=== PATIENT | male | born 1945 | race Caucasian/White ===

== ENCOUNTER → 2020-08-03 | Outpatient (CLI) | payer MEDICARE ==
[2020-08-03 20:22] LABS: African American GFR (CKD) 69.1 (60.0-200.0); Anion Gap 6.7 mmol/L (4.00-12.00); Calcium 9.4 mg/dL (8.7-10.3); Carbon Dioxide 31.3 mmol/L (21.6-31.8); Non-African American GFR(CKD) 59.6 (60.0-200.0)
== END | disposition home or self-care (01) ==
LOC: LABWHC1 10:12
PROVIDERS: ATTEND Internal Medicine Cardiovascular Disease
DX: I10 Essential (primary) hypertension (principal); E78.2 Mixed hyperlipidemia; R00.1 Bradycardia, unspecified
CPT/HCPCS: 36415; 80048; 84443

== ENCOUNTER → 2020-09-06 | Outpatient (CLI) | payer MEDICARE ==
--- NOTE | 2020-09-06 11:47 | CT ---
EXAMINATION TYPE: CT abdomen pelvis w con DATE OF EXAM: 09/06/2020 COMPARISON: HISTORY: Elevated PSA CT DLP: 1989.6 mGycm CONTRAST: CT scan of the abdomen and pelvis is performed with Oral Contrast and with IV Contrast, patient injec sunshine with 80 mL of Isovue 300. FINDINGS: LUNG BASES-: No visible nodule. No infiltrate. LIVER/GB: Multiple small gallstones identified. No thickening or pericholecystic fluid. No space o ccupying hepatic lesion. Biliary tree is of normal caliber. PANCREAS: No inflammation. No distinct mass. SPLEEN: No splenic enlargement. No lesion seen. ADRENALS: No nodule. No thickening. KIDNEYS/BLADDER: No hydronephrosis. No nephrolithiasis. No solid renal masses identified. Simple cy sts noted bilaterally the largest at mid pole right kidney 0.5 cm. Urinary bladder grossly unremarkab le. BOWEL: Normal appendix. Normal bowel caliber. No inflammation. GENITAL ORGANS: There are changes of prostatectomy. Pelvic sidewalls.. LYMPH NODES: No greater than 1cm abdominal or pelvic lymph nodes are appreciated. AORTA: No significant abnormality. OSSEOUS STRUCTURES: There is loss of vertebral body height at L5 this is T11. Findings are of uncerta in age and/or etiology. Degenerative changes are seen. OTHER: No significant additional abnormality is seen. IMPRESSION: 1. Multiple small gallstones identified. No thickening or pericholecystic fluid. 2.There is loss of vertebral body height at L5 this is T11. Findings are of uncertain age and/or etio logy.
--- NOTE | 2020-09-06 13:21 | NM ---
EXAMINATION TYPE: NM bone scan whole body DATE OF EXAM: 09/06/2020 COMPARISON: NONE HISTORY: R97.21 Post cancer treatment rising PSA Delayed whole-body scanning was performed following the injection of 19.4 mCi Tc 99m MDP. Images acq uired 3 hours post injection. FINDINGS: Intense increased uptake linear configuration involving T11 compatible with compression fracture. Fra ctures of uncertain etiology. Metastatic disease not excluded. Focal increased uptake involving the g reater tuberosity of the right humerus. Radiographic correlation advised. Otherwise there is degenera tive uptake of the shoulders, sternoclavicular joints, mid thoracic spine and lower lumbar spine as w ell as the knees and great toes. IMPRESSION: 1. T11 fracture of uncertain etiology. Underlying pathologic component difficult to exclude. Radiogra phic correlation advised. 2. Focal increased uptake greater tuberosity of the right humerus requires further evaluation with ra diographs.
== END | disposition home or self-care (01) ==
LOC: RADCTMAIN 08:14
PROVIDERS: ATTEND Urology
DX: K80.20 Calculus of gallbladder without cholecystitis without obstruction (principal); M51.85 Other intervertebral disc disorders, thoracolumbar region; R94.8 Abnormal results of function studies of other organs and systems
CPT/HCPCS: 82565; 84520; 74177; 36415; 78306; A9503; Q9967 ×2

== ENCOUNTER → 2020-09-07 | Outpatient (CLI) | payer MEDICARE ==
--- NOTE | 2020-09-07 14:26 | XR ---
EXAMINATION TYPE: XR humerus RT DATE OF EXAM: 09/07/2020 COMPARISON: None HISTORY: Back pain shoulder pain TECHNIQUE: Two-view right humerus FINDINGS: Joint spaces are preserved. No acute fractures are evident. IMPRESSION: 1. Normal 2 view right humerus
--- NOTE | 2020-09-07 14:28 | XR ---
EXAMINATION TYPE: XR lumbar spine 2 or 3V DATE OF EXAM: 09/07/2020 COMPARISON: None HISTORY: Shoulder and back pain TECHNIQUE: Three-view lumbar spine FINDINGS: There 5 lumbar-type vertebral bodies. Pedicles are intact. Scoliosis is present centered to L3 with a convexity to the left. There is diffuse loss of disc height throughout the lumbar spine. T his appears greatest at L4-5. Endplate spurring is present L2-3 L3-4 and L4-5. Spondylosis is present . IMPRESSION: 1. Degenerative disc changes greatest at L4-5 2. Some endplate spurring may be present through the lumbar spine. Consider MRI for additional evalua tion. 3. Spondylosis
== END | disposition home or self-care (01) ==
LOC: RADXRMAIN 11:13
PROVIDERS: ATTEND Urology
DX: M54.5 Low back pain (principal); M25.519 Pain in unspecified shoulder; M47.816 Spondylosis without myelopathy or radiculopathy, lumbar region
CPT/HCPCS: 72100

== ENCOUNTER → 2021-04-16 | Outpatient (CLI) | payer MEDICARE | END | disposition home or self-care (01) | LOC: LABWHC1 08:51 | PROVIDERS: ATTEND Radiology Radiation Oncology | DX: C61 Malignant neoplasm of prostate (principal); Z90.79 Acquired absence of other genital organ(s) | CPT/HCPCS: 36415; 84153 ==

== ENCOUNTER → 2021-11-04 | Outpatient (CLI) | payer MEDICARE | END | disposition home or self-care (01) | LOC: LABWHC1 15:23 | PROVIDERS: ATTEND Radiology Radiation Oncology | DX: C61 Malignant neoplasm of prostate (principal); Z92.3 Personal history of irradiation; Z90.79 Acquired absence of other genital organ(s) | CPT/HCPCS: 36415; 84153 ==

== ENCOUNTER → 2022-05-06 | Outpatient (CLI) | payer MEDICARE | END | disposition home or self-care (01) | LOC: LABWHC1 11:09 | PROVIDERS: ATTEND Radiology Radiation Oncology | DX: C61 Malignant neoplasm of prostate (principal); Z92.3 Personal history of irradiation; Z90.79 Acquired absence of other genital organ(s) | CPT/HCPCS: 36415; 84153 ==

== ENCOUNTER → 2022-11-11 | Outpatient (CLI) | payer MEDICARE | END | disposition home or self-care (01) | LOC: LABWHC1 11:10 | PROVIDERS: ATTEND Radiology Radiation Oncology | DX: Z08 Encounter for follow-up examination after completed treatment for malignant neoplasm (principal); C61 Malignant neoplasm of prostate; Z90.79 Acquired absence of other genital organ(s); Z92.3 Personal history of irradiation; Z85.46 Personal history of malignant neoplasm of prostate | CPT/HCPCS: 36415; 84153 ==

== ENCOUNTER → 2023-02-20 | Day surgery (SDC) | payer MEDICARE ==
[~2023-02-20] MED LIST: BUPIVACAINE (PF) 0.25% 30 ML VIAL SQ ONE; DEXAMETHASONE SOD PHOSPHATE 4 MG/ML 1 ML VIAL IV ONE; DEXAMETHASONE SOD PHOSPHATE 4 MG/ML 1 ML VIAL ONE; GLYCOPYRROLATE 0.2 MG/ML 2 ML VIAL ONE; HYDROmorphone (PF) 1 MG/ML ONE; LACTATED RINGERS 1,000 ML IV SCH; LIDOCAINE 1% (10MG/ML) FOR IV START INTRADERMA PRN; LIDOCAINE 2% INJ 20 MG/ML (2 ML VIAL) ONE; METOCLOPRAMIDE 5 MG/ML 2 ML VIAL IVP PRN; MIDAZOLAM 2 MG/2 ML VIAL IVP ONE; ONDANSETRON 4 MG/2 ML VIAL IVP ONE; ONDANSETRON 4 MG/2 ML VIAL ONE; PHENYLEPHRINE-0.9% NACL SYG 1,000 MCG/10 ML SYRINGE ONE; PROPOFOL 10 MG/ML 20 ML VIAL IV ONE; ROPIVACAINE 5 MG/ML 30 ML VIAL ONE; ceFAZolin 3 GM in SODIUM CHLORIDE 0.9% 100 ML IVPB PRN; fentaNYL (PF) 50 MCG/ML 2 ML AMP IVP ONE; fentaNYL (PF) 50 MCG/ML 2 ML AMP ONE
--- NOTE | 2023-02-20 10:42 | P.ANPRN ---
Procedure Note - Anesthesia - Nerve Block Performed Right Adductor Canal Single Date of Procedure: 02/20/23 Procedure Start Time: 10:26 Procedure Stop Time: 10:38 Location of Patient: PreOp Indication: Acute Post-Operative Pain Specifically requested for management of pain by DrSaira: Auerlio Roe Sedation Type: Sedate with meaningful contact maintained Preparation: Sterile Prep Position: Supine Needle Types: Pajunk Needle Gauge: 21 Ultrasound used to visualize needle placement: Yes Ultrasound used to observe medication spread: Yes Injectate: 0.5% Ropivacaine (see comment for volume) (10 mL/Decadron 4 mg) Blood Aspirated: No Pain Paresthesia on Injection Noted: No Resistance on Injection: Normal Image Stored and Saved: Yes Events: Uneventful and Well Tolerated
--- NOTE | 2023-02-20 10:44 | P.ANPRN ---
Procedure Note - Anesthesia - Nerve Block Performed Right Popliteal Single Date of Procedure: 02/20/23 Procedure Start Time: 10: Procedure Stop Time: 10:38 Location of Patient: PreOp Indication: Acute Post-Operative Pain Specifically requested for management of pain by DrSaira: Aurelio Roe Sedation Type: Sedate with meaningful contact maintained Preparation: Sterile Prep Position: Left Lateral Catheter: None Needle Types: Pajunk Needle Gauge: 21 Ultrasound used to visualize needle placement: Yes Ultrasound used to observe medication spread: Yes Injectate: 0.5% Ropivacaine (see comment for volume) (20 mL/Decadron 2 mg) Blood Aspirated: No Pain Paresthesia on Injection Noted: No Resistance on Injection: Normal Image Stored and Saved: Yes Events: Uneventful and Well Tolerated
--- NOTE | 2023-02-20 16:23 | P.OP ---
Date of Procedure: 02/20/23 Preoperative Diagnosis: Hallux rigidus right foot Postoperative Diagnosis: Same Procedure(s) Performed: First metatarsal phalangeal joint arthrodesis right foot Implants: Arthrex MaxForce plate Arthrex bone allograft Anesthesia: MINA Surgeon: Aurelio Roe Estimated Blood Loss (ml): 1 Pathology: none sent Condition: stable Disposition: PACU Description of Procedure: Prior to the patient being brought to the operating room, anesthesia administered a nerve block on the surgical extremity. Then the patient was brought into the operating room and placed on table in the supine position. Timeout was taken to confirm correct patient identifiers, correct lateral surgery, and correct procedure. Once the staff in the room were in agreement with the timeout, the patient was induced and placed under general anesthesia. A well-padded tourniquet was placed on the ankle and then the foot was prepped and draped in the usual manner. The right foot was exsanguinated and the tourniquet inflated to 250 mmHg. Attention was directed over the dorsal aspect of the first metatarsal phalangeal joint, where a linear incision was made between the long extensor tendon and the neurovascular structures. The incision was deepened down to the subcutaneous layer careful to identify, avoid, and retract any neurovascular structures and cauterize any bleeding vessels. Blunt dissection was continued through the subcutaneous layer down to the periosteum and capsule. A linear periosteal and capsular incision was made medial to the long extensor tendon. Those tissues were then sharply reflected off of the first metatarsal head and shaft as well as the base of the proximal phalanx. The soft tissue was released around the joint so that the joint could be mobilized and accessed. A guidewire was placed through the central aspect of the first metatarsal head parallel to the long access and within the medullary canal. Appropriate size reamers were used to shape the first metatarsal head. Then a concave reamer was inserted over the guidewire and used to remove the articular cartilage and subchondral bone. The wire was removed was used to aggressively fenestrate the head of the first metatarsal. The guidewire was then inserted at the central aspect of the articular surface of the base of the proximal phalanx. The wire was advanced parallel to the long access and within the medullary canal. The convex reamer was then used to remove the articular cartilage and subchondral bone. The guidewire was removed and used to fenestrate the surface. The wound is then thoroughly irrigated with antibiotic saline. Arthrex Arthrocell was placed between the arthrodesis segments. A 0 bend first metatarsal phalangeal joint fusion plate was then positioned dorsally over the site. Temporary fixation was used to hold the plate in place. Fluoroscopy was used to check the placement of the plate as well as the joint alignment. Once both positions were satisfactory, a combination of locking and nonlocking screws were placed in the distal part of the plate into the proximal phalanx. The position of the joint and plate were checked again under fluoroscopy. Once both were satisfactory, a wire was placed in the base of the proximal phalanx and across the arthrodesis site to maintain the alignment. The offset drill guide was then placed in the compression slot of the plate. The guide was removed and then the compression device was inserted through the drill hole in engaged with the plate. The compression device was turned to further compress the joint. While holding a compressed another temporary fixation wire was used to hold it in place. A drill hole through the proximal compression slot was then made and a nonlocking screw was inserted and tightened until it engaged the plate and provided further compression across the arthrodesis site. A nonlocking screw was then placed in the drill hole in the proximal aspect of the plate closest to the joint line. The final screw was a locking screw placed in the most proximal hole the plate. Final fluoroscopic imaging showed proper placement of all hardware, maintaining correction of the joint, and excellent compression across the arthrodesis site. The temporary fixation wire was removed and the joint thoroughly irrigated with antibiotic saline. The capsule and periosteal tissues were closed with 0 Vicryl. Subcu closure was done with 4-0 Monocryl. And skin closure was done w ith 4-0 Stratafix in a running subcuticular manner. Dermal glue was placed around the incision, and once dried, Steri-Strips are placed across incision. An Arthrex jumpstart dressing was placed directly over the incision and then a dry sterile dressings applied to the right foot. The tourniquet was released and capillary refill return to all digits on the right foot. The patient was then placed in a well-padded, well molded plaster posterior mold/sugar tong splint. The ankle was held in neutral position until the splint was dried. Then anesthesia was reversed and the patient was taken recovery with vital signs stable.
[2023-02-20 16:29] VITALS: TEMP 96.8
[2023-02-20 16:51] VITALS: RESP 16
[2023-02-20 18:00] VITALS: BP 152/88; PULSE 79
== END | disposition home or self-care (01) ==
LOC: OR 09:10
PROVIDERS: ATTEND Podiatrist
DX: M20.21 Hallux rigidus, right foot (principal); G89.18 Other acute postprocedural pain; I10 Essential (primary) hypertension; E78.5 Hyperlipidemia, unspecified; Z86.59 Personal history of other mental and behavioral disorders; Z79.899 Other long term (current) drug therapy
CPT/HCPCS: 64447; 64445; 28750; C1713; C1734; J2250; J1100; J0690; J2405; J3010; J1170; J2795; J2704; J2001; J2371; J0665

== ENCOUNTER 2023-10-29 10:35 | Inpatient (IN) | payer MEDICARE ==
--- NOTE | 2023-10-29 11:29 | ED ---
Dizziness HPI - General Stated Complaint: Hypertension Time Seen by Provider: 10/29/23 11:15 Source: patient, RN notes reviewed - History of Present Illness Initial Comments: This is a 78-year-old male who presents emergency department via EMS chief complaint of headache, blurry/double vision, dizziness over the last 4 days. Patient states that he returned home on Thursday evening after driving with his convertible top down and noticed a headache on the left side of his forehead wrapping around the temporal region that has been intermittent since. this morning he had another brief experience of blurry/double vision and dizziness described as the room spinning sensation prompting his visit to the [facility]. He denies any chest pain or pressure, palpitations. Endorses exertional dyspnea that has been ongoing, denies orthopena or bilateral lower extremity swelling. Denies dysuria, abdominal pain, numbness/tingiling, fevers, nausea. Denies history of [place], CVA, and PE/DVT, takes ASA 81, losartan and statin. - Related Data Home Medications Medication Instructions Recorded Confirmed Aspirin 81 mg PO DAILY 02/17/23 10/29/23 Atorvastatin [Lipitor] 20 mg PO DAILY 10/29/23 10/29/23 Latanoprost [Latanoprost 0.005%] 1 drop BOTH EYES DIRECTED 10/29/23 10/29/23 Losartan/Hydrochlorothiazide 1 tab PO HS 10/29/23 10/29/23 [Hyzaar 100-12.5 Tablet] Pantoprazole Sodium [Protonix] 20 mg PO HS 10/29/23 10/29/23 Allergies Allergy/AdvReac Type Severity Reaction Status Date / Time hydrocodone bitartrate Allergy went Verified 10/29/23 11:05 [From Vicodin] "bananas" Review of Systems ROS Statement: Those systems with pertinent positive or pertinent negative responses have been documented in the HPI. ROS Other: All systems not noted in ROS Statement are negative. Past Medical History Past Medical History: Cancer, Hyperlipidemia, Hypertension Additional Past Medical History / Comment(s): hx prostates cancer, 2016 History of Any Multi-Drug Resistant Organisms: None Reported Past Surgical History: Hernia Repair, Orthopedic Surgery, Prostate Surgery Additional Past Surgical History / Comment(s): bilateral HAND TENDON RELEASE, colonoscopy Past Anesthesia/Blood Transfusion Reactions: No Reported Reaction Smoking Status: Never smoker - Past Family History Father Family Medical History: Myocardial Infarction ([place]) Mother Family Medical History: Cancer General Exam General appearance: alert, in no apparent distress Head exam: Present: atraumatic, normocephalic, normal inspection Eye exam: Present: normal appearance, PERRL, EOMI. Absent: scleral icterus, conjunctival injection, periorbital swelling ENT exam: Present: normal exam, mucous membranes moist Neck exam: Present: normal inspection. Absent: tenderness, meningismus, lymphadenopathy Respiratory exam: Present: normal lung sounds bilaterally. Absent: respiratory distress, wheezes, rales, rhonchi, stridor Cardiovascular Exam: Present: regular rate, normal rhythm, bradycardia, normal heart sounds. Absent: systolic murmur, diastolic murmur, rubs, gallop, clicks GI/Abdominal exam: Present: soft, normal bowel sounds. Absent: distended, tenderness, guarding, rebound, rigid Extremities exam: Present: normal inspection, full ROM, normal capillary refill, other (1/2+ bilateral lower extremity pitting edema). Absent: tenderness, pedal edema, joint swelling, calf tenderness Back exam: Present: normal inspection Neurological exam: Present: alert, oriented X3, CN II-XII intact Psychiatric exam: Present: normal affect, normal mood Skin exam: Present: warm, dry, intact, normal color. Absent: rash Course Vital Signs 10/29/23 10/29/23 10/29/23 11:02 11:24 11:33 Temperature 98 F Pulse Rate 61 52 L 59 L Respiratory 18 18 18 Rate Blood Pressure 154/99 146/92 154/90 O2 Sat by Pulse 98 95 97 Oximetry 10/29/23 12:22 Temperature Pulse Rate 48 L Respiratory 18 Rate Blood Pressure 147/101 O2 Sat by Pulse 98 Oximetry Medical Decision Making - Medical Decision Making Was pt. sent in by a medical professional or institution (, PA, WORKFORCE MANAGEMENT CONSULTANT, urgent care, hospital, or correction...) When possible be specific @ -No Did you speak to anyone other than the patient for history (EMS, parent, family, police, friend...)? What history was obtained from this source @ -No Did you review nursing and triage notes (agree or disagree)? Why? @ -I reviewed and agree with nursing and triage notes Were old charts reviewed (outside hosp., previous admission, EMS record, old EKG, old radiological studies, urgent care reports/EKG's, correction records)? Report findings @ -No old charts were reviewed Differential Diagnosis (chest pain, altered mental status, abdominal pain women, abdominal pain men, vaginal bleeding, weakness, fever, dyspnea, syncope, headache, dizziness, GI bleed, back pain, seizure, CVA, palpatations, mental health, musculoskeletal)? @ -Differential Headache: Migraine, tension, cluster, carbon monoxide, central venous thrombosis, pension karma temporal arteritis, acute closure glaucoma, intercranial hemorrhage, mastoiditis, sinusitis, head injury, this is not meant to be an all-inclusive list. EKG interpreted by me (3pts min.). @Completed at 11:00 reading sinus bradycardia, ventricular rate 59, [place] interval 191, QTc 422. poor R wave progression noted in the precordial leads. No acute signs of ischemia. X-rays interpreted by me (1pt min.). @ -chest X-ray no acute cardiopulmonary process noted CT interpreted by me (1pt min.). @ -Ct brain without contrast reveals no acute intracranial processes minimal chronic appearing periventricular white matter changes U/S interpreted by me (1pt. min.). @ -None done What testing was considered but not performed or refused? (CT, X-rays, U/S, labs)? Why? @ -None What meds were considered but not given or refused? Why? @ -None Did you discuss the management of the patient with other professionals (professionals i.e. , PA, WORKFORCE MANAGEMENT CONSULTANT, lab, RT, psych nurse, healthcare social worker, equipment engineering technician, teacher, driver's license reviewing officer, supportive employment case manager)? Give summary @ -I discussed this case with recommendation for observation with [facility] emergency department physicians group, , agreeable for observation for bradycardia, HTN, Dizziness and blurred vision. Internal medicine will visit with patient to determine if he would benefit from cardiology consultation. Was smoking cessation discussed for >3mins.? @ -No Was critical care preformed (if so, how long)? @ -No Were there social determinants of health that impacted care today? How? (Homelessness, low income, unemployed, alcoholism, drug addiction, transportation, low edu. Level, literacy, decrease access to med. care, fpc, rehab)? @ -No Was there de-escalation of care discussed even if they declined (Discuss DNR or withdrawal of care, Hospice)? DNR status @ -No What co-morbidities impacted this encounter? (DM, HTN, Smoking, COPD, CAD, Cancer, CVA, ARF, Chemo, Hep., AIDS, mental health diagnosis, sleep apnea, morbid obesity)? @ -None Was patient admitted / discharged? Hospital course, mention meds given and route, prescriptions, significant lab abnormalities, going to OR and other pertinent info. @ -78-year-old male with headache/ blurry double vision. On physical exam patient was found to have bilateral lower extremity 1-2+ pitting edema, pulmonary and cardiovascular exams unremarkable. CT brain without contrast due to symptoms of blurred double vision and headache unemarkable for signs of acute hemorrhage, revealed chronic white matter changed. chest xray unremarkable for signs of pulmonary edema or increased vascular marking. CBC and CMP within normal limits, no evidence for electrolyte abnormalities or leukocytosis. BNP and troponin nonelevated. Patient's vitals revealed multiple episodes of bradyc ardia with associated HTN, patient states that he is asymptomatic. Patient will be admitted for observation with bradycardia, hypertension/double vision. I discussed this case with my attending Dr. Lombardi who is agreeable with plan for observation and with internal medicine Dr. Alberts. Undiagnosed new problem with uncertain prognosis? @ -No Drug Therapy requiring intensive monitoring for toxicity (Heparin, Nitro, Insulin, Cardizem)? @ -No Were any procedures done? @ -No Diagnosis/symptom? @ -Bradycardia, HTN, blurred and double vision, HOBBS Acute, or Chronic, or Acute on Chronic? @ -acute Uncomplicated (without systemic symptoms) or Complicated (systemic symptoms)? @ -[complicated Side effects of treatment? @ -No Exacerbation, Progression, or Severe Exacerbation? @ -No Poses a threat to life or bodily function? How? (Chest pain, [place], [place], pneumonia, PE, COPD, DKA, ARF, appy, cholecystitis, CVA, Diverticulitis, Homicidal, Suicidal, threat to staff... and all critical care pts) @ -No - Lab Data Result diagrams: 10/29/23 11:05 10/29/23 11:00 Lab Results 10/29/23 10/29/23 10/29/23 Range/Units 11:00 11:05 11:05 WBC 4.9 (3.8-10.6) k/uL RBC 5.00 (4.30-5.90) m/uL Hgb 15.0 (13.0-17.5) gm/dL Hct 45.7 (39.0-53.0) % MCV 91.4 (80.0-100.0) fL MCH 30.0 (25.0-35.0) pg MCHC 32.8 (31.0-37.0) g/dL RDW 12.7 (11.5-15.5) % Plt Count 113 L (150-450) k/uL MPV 9.7 Neutrophils % 62 % Lymphocytes % 23 % Monocytes % 8 % Eosinophils % 4 % Basophils % 1 % Neutrophils # 3.0 (1.3-7.7) k/uL Lymphocytes # 1.1 (1.0-4.8) k/uL Monocytes # 0.4 (0-1.0) k/uL Eosinophils # 0.2 (0-0.7) k/uL Basophils # 0.0 (0-0.2) k/uL PT 10.6 (10.0-12.5) sec INR 1.0 (<1.2) APTT 22.1 (22.0-30.0) sec Sodium 138 (137-145) mmol/L Potassium 3.7 (3.5-5.1) mmol/L Chloride 107 (98-107) mmol/L Carbon Dioxide 26 (22-30) mmol/L Anion Gap 5 mmol/L BUN 21 H (9-20) mg/dL Creatinine 1.03 (0.66-1.25) mg/dL Est GFR (CKD-EPI)AfAm 82 (>60 ml/min/1.73 sqM) Est GFR (CKD-EPI)NonAf 71 (>60 ml/min/1.73 sqM) Glucose 131 H (74-99) mg/dL POC Glucose (mg/dL) (70-110) mg/dL POC Glu Orthopedic Physical Therapist ID Calcium 9.0 (8.4-10.2) mg/dL Magnesium 1.6 (1.6-2.3) mg/dL Total Bilirubin 1.2 (0.2-1.3) mg/dL AST 25 (17-59) U/L ALT 19 (4-49) U/L Alkaline Phosphatase 132 H (38-126) U/L Troponin I (0.000-0.034) ng/mL NT-Pro-B Natriuret Pep 157 pg/mL Total Protein 6.4 (6.3-8.2) g/dL Albumin 3.6 (3.5-5.0) g/dL 10/29/23 10/29/23 Range/Units 11:05 12:01 WBC (3.8-10.6) k/uL RBC (4.30-5.90) m/uL Hgb (13.0-17.5) gm/dL Hct (39.0-53.0) % MCV (80.0-100.0) fL MCH (25.0-35.0) pg MCHC (31.0-37.0) g/dL RDW (11.5-15.5) % Plt Count (150-450) k/uL MPV Neutrophils % % Lymphocytes % % Monocytes % % Eosinophils % % Basophils % % Neutrophils # (1.3-7.7) k/uL Lymphocytes # (1.0-4.8) k/uL Monocytes # (0-1.0) k/uL Eosinophils # (0-0.7) k/uL Basophils # (0-0.2) k/uL PT (10.0-12.5) sec INR (<1.2) APTT (22.0-30.0) sec Sodium (137-145) mmol/L Potassium (3.5-5.1) mmol/L Chloride (98-107) mmol/L Carbon Dioxide (22-30) mmol/L Anion Gap mmol/L BUN (9-20) mg/dL Creatinine (0.66-1.25) mg/dL Est GFR (CKD-EPI)AfAm (>60 ml/min/1.73 sqM) Est GFR (CKD-EPI)NonAf (>60 ml/min/1.73 sqM) Glucose (74-99) mg/dL POC Glucose (mg/dL) 112 H (70-110) mg/dL POC Glu Orthopedic Physical Therapist ID Blanca, Vickie Calcium (8.4-10.2) mg/dL Magnesium (1.6-2.3) mg/dL Total Bilirubin (0.2-1.3) mg/dL AST (17-59) U/L ALT (4-49) U/L Alkaline Phosphatase (38-126) U/L Troponin I <0.012 (0.000-0.034) ng/mL NT-Pro-B Natriuret Pep pg/mL Total Protein (6.3-8.2) g/dL Albumin (3.5-5.0) g/dL Disposition Clinical Impression: Bradycardia, Hypertension, Dyspnea on exertion, Blurring of vision Disposition: ADMITTED IP TO THIS [facility] Condition: Good Referrals: None,Stated [Primary Care Provider] - 1-2 days Decision to Admit Reason: Admit from [facility] Decision Date: 10/29/23 (Bradycardia, HTN, blurred vision/double vision) Decision Time: 12:32
[2023-10-29 11:35] LABS: Basophils % (A) 1 %; Eosinophils # (A) 0.2 k/uL (0-0.7); Eosinophils % (A) 4 %; HCT 45.7 % (39.0-53.0); Lymphocytes # (A) 1.1 k/uL (1.0-4.8); Lymphocytes % (A) 23 %; MCHC 32.8 g/dL (31.0-37.0); MCV 91.4 fL (80.0-100.0); Mean Platelet Volume 9.7; Monocytes # (A) 0.4 k/uL (0-1.0); Monocytes % (A) 8 %; Neutrophils % (A) 62 %; Platelet Count 113 k/uL (150-450); RDW 12.7 % (11.5-15.5); WBC 4.9 k/uL (3.8-10.6)
[2023-10-29 11:44] LABS: ALT 19 U/L (4-49); African American GFR (CKD) 82 (>60 ml/min/1.73 sqM); Albumin 3.6 g/dL (3.5-5.0); Anion Gap 5 mmol/L; Blood Urea Nitrogen 21 mg/dL (9-20); Carbon Dioxide 26 mmol/L (22-30); Chloride 107 mmol/L (98-107); Glucose 131 mg/dL (74-99); Non-African American GFR(CKD) 71 (>60 ml/min/1.73 sqM); Sodium 138 mmol/L (137-145); Total Bilirubin 1.2 mg/dL (0.2-1.3); Total Protein 6.4 g/dL (6.3-8.2)
--- NOTE | 2023-10-29 11:46 | CT ---
EXAMINATION TYPE: CT brain wo con DATE OF EXAM: 10/29/2023 COMPARISON: 02/26/2014 INDICATION: DIZZINESS AND AMS DLP: 1168.4 mGycm, Automated exposure control for dose reduction was used. CONTRAST: None CT of the brain is performed utilizing 3 mm thick sections through the posterior fossa and 3 mm thick sections through the remaining calvarium. Study is performed within 24 hours of arrival to the hosp ital. No abnormal hyperdensity is present to suggest an acute intracranial hemorrhage. No mass lesion is evident. No acute infarcts are evident. Minimal periventricular white matter hypodensity may be present, likel y on the basis of chronic white matter ischemic changes. Ventricles and sulci are appropriate for the patient age. There is a patent cavum septum callosum an d cavum vergae, normal variants. There is opacification of the left maxillary sinus. Large retention cysts within the right maxillary sinus. Remaining paranasal sinuses and mastoid air cells are clear. IMPRESSION: 1. Minimal chronic appearing periventricular white matter ischemic-type changes. 2. No acute intracranial process. Follow-up MRI can be performed as clinically indicated
--- NOTE | 2023-10-29 11:47 | XR ---
EXAMINATION TYPE: XR chest 2V DATE OF EXAM: 10/29/2023 COMPARISON: None INDICATION: Dyspnea hypertension TECHNIQUE: Frontal and lateral views of the chest are obtained. FINDINGS: The heart size is normal. The pulmonary vasculature is normal. The lungs are clear. IMPRESSION: 1. No acute pulmonary process.
[2023-10-29 11:49] LABS: Partial Thromboplastin Time 22.1 sec (22.0-30.0); Prothrombin Time 10.6 sec (10.0-12.5)
[2023-10-29 11:53] LABS: NT-Pro-B-Type Natriuretic Pept 157 pg/mL
[2023-10-29 12:05] LABS: Glucose,Whole Blood 112 mg/dL (70-110)
[2023-10-29 12:08] LABS: AST 25 U/L (17-59); Alkaline Phosphatase 132 U/L (38-126); Magnesium 1.6 mg/dL (1.6-2.3); Potassium 3.7 mmol/L (3.5-5.1)
[2023-10-29] MEDS ORDERED: NALOXONE 0.4 MG/ML 1 ML VIAL IV PRN (12:30)
[2023-10-29] MEDS ORDERED: IBUPROFEN 400 MG TAB PO PRN (12:30)
--- NOTE | 2023-10-29 15:38 | P.HPIM ---
History of Present Illness H&P Date: 10/29/23 History of Presenting Illness: Patient is a very pleasant 78-year-old male with a past medical history of hypertension, hyperlipidemia, TIA and prostate surgery status post prostatectomy. He presented to the emergency department with a chief complaint of headache, blurry/double vision, and dizziness. Patient reports Thursday he drove home from [place] to [place] in a convertible with a top- down. Patient reports upon getting home and getting out of the car he became very dizzy/lightheaded and noticed he had some blurred vision which turns into double vision with movement of his head. Patient states he then noticed when walking up his steps to get into his house his right leg felt heavy and was not moving right. Patient states this continued throughout most of the evening but has then waxed and waned over the past 4 days. Patient states this exact thing happened once before 10 years ago and he underwent full cardiac and neurologic workup at that time and was diagnosed with a TIA and discharged home. Patient states the last time this occurred however it only lasted a short while and resolved independently, however he reports he was concerned today because the symptoms although waxing and waning seem to persist so he called EMS for transport to the hospital. Patient reports headache is mostly to left temporal region, blurred vision and double vision occurs in both eyes and is worse with movement, and heaviness and feeling of not moving her right/dragging sensation is only in right lower extremity. Denies any ringing in his ears or changes in hearing, difficulties with or changes in his speech, dysphagia, chest pain, palpitations, shortness of breath, or experiencing any swelling in his extremities. Patient underwent evaluation in the emergency department. Upon arrival blood pressure 154/99, heart rate 61, respiratory rate 18, temp 98.0 F, and SpO2 of 98% on room air. EKG completed showing sinus bradycardia at 59 bpm. Chest x-ray completed negative for acute cardiopulmonary process. CT brain completed revealing minimal chronic appearing periventricular white matter ischemic changes otherwise negative for acute intracranial process. Review of systems: Pertinent positives and negatives as discussed in HPI, a complete review of systems was performed and all other systems are negative. Physical exam: Vital signs reviewed and stable. General: Nontoxic, no distress and appears stated age. Derm: Skin warm and dry, normal coloration for ethnicity. Head: Atraumatic, normocephalic and symmetric. Eyes: EOMs intact, no lid lag, and anicteric sclera Mouth: no lip lesions, mucus membranes moist Cardiovascular: regular rate and rhythm with normal S1S2, soft systolic murmur, positive posterior tibial pulses bilaterally, and cap refill < 2 seconds. Lungs: Respirations even, regular, and unlabored on room air. Lungs CTA bilaterally, no rhonchi, no rales, no wheezing, and no accessory muscle usage. Abdominal: soft, nontender to palpation, no guarding, no appreciable organomegaly Ext: ROM intact. No gross muscle atrophy, no edema, no contractures Neuro: Speech clear, face symmetrical and CN II-XII grossly intact with no noted focal neuro deficits Psych: Alert and oriented to person, place, time, and situation. Appropriate and pleasant affect. Assessment and Plan of Care: Headache, blurry/double vision, and dizziness Right lower extremity heaviness Hypertension Hyperlipidemia History of TIA -Consult neurology, appreciate recommendations -Order placed for meclizine 25 mg p.o. x 1 dose and 25 mg 4 times daily as needed for vertigo. -Orders placed for echocardiogram and carotid Doppler -TSH, Lipid profile, and Hgb A1c -Neuro checks every 4 hours and as needed -Continue aspirin 81 mg daily and atorvastatin 20 mg daily -PT/OT consult -Fall precautions and provide pt with assistance as needed. -Telemetry monitoring. -Order placed for orthostatic vitals. -Order placed for visual acuity testing Data and imaging reviewed: -As stated above in HPI The patient is admitted with an anticipated greater than 2 midnight stay for evaluation of possible TIA CODE STATUS: Full code DVT prophylaxis: Lovenox Anticipated discharge date: 24 to [address]: Home Patient was seen independently by Nurse Practitioner. This document was prepared using [employer] dictation software. Please allow for errors in photocomposing machine operator while rare they do occur. Paul Madsen NP rendered care for this patient independently, reviewed the findings and plan as documented in the note above. I did not physically speak with or examine the patient on this date. Past Medical History Past Medical History: Cancer, Hyperlipidemia, Hypertension Additional Past Medical History / Comment(s): hx prostates cancer, 2016 History of Any Multi-Drug Resistant Organisms: None Reported Past Surgical History: Hernia Repair, Orthopedic Surgery, Prostate Surgery Additional Past Surgical History / Comment(s): bilateral HAND TENDON RELEASE, colonoscopy Past Anesthesia/Blood Transfusion Reactions: No Reported Reaction Smoking Status: Never smoker - Past Family History Father Family Medical History: Myocardial Infarction ([place]) Mother Family Medical History: Cancer Medications and Allergies Home Medications Medication Instructions Recorded Confirmed Type Aspirin 81 mg PO DAILY 02/17/23 10/29/23 History Atorvastatin [Lipitor] 20 mg PO DAILY 10/29/23 10/29/23 History Latanoprost [Latanoprost 0.005%] 1 drop BOTH EYES HS 10/29/23 10/30/23 History Losartan/Hydrochlorothiazide 1 tab PO HS 10/29/23 10/29/23 History [Hyzaar 100-12.5 Tablet] Pantoprazole Sodium [Protonix] 20 mg PO HS 10/29/23 10/29/23 History Allergies Allergy/AdvReac Type Severity Reaction Status Date / Time hydrocodone bitartrate Allergy went Verified 10/29/23 11:05 [From Vicodin] "bananas" Physical Exam Vitals: Vital Signs Temp Pulse Resp BP Pulse Ox 10/29/23 14:00 46 L 13 151/97 97 10/29/23 13:30 44 L 12 141/100 97 10/29/23 13:00 49 L 15 145/90 97 10/29/23 12:22 48 L 18 147/101 98 10/29/23 11:33 98 F 59 L 18 154/90 97 10/29/23 11:24 52 L 18 146/92 95 10/29/23 11:02 61 18 154/99 98 Intake and Output 10/28/23 10/29/23 10/29/23 22:59 06:59 14:59 Intake Total 10 Balance 10 Intake: IV 10 Invasive Line 1 10 Other: Weight 122.47 kg Results CBC & Chem 7: 10/29/23 11:05 10/30/23 05:32 Labs: Abnormal Lab Results - Last 24 Hours (Table) 10/29/23 10/29/23 10/29/23 Range/Units 11:00 11:05 12:01 Plt Count 113 L (150-450) k/uL BUN 21 H (9-20) mg/dL Glucose 131 H (74-99) mg/dL POC Glucose (mg/dL) 112 H (70-110) mg/dL Alkaline Phosphatase 132 H (38-126) U/L
[2023-10-29] MEDS: ASPIRIN 81 MG PO STA (15:56)
[2023-10-29] MEDS: MECLIZINE 25 MG TAB PO STA (15:57)
--- NOTE | 2023-10-29 20:27 | US ---
EXAMINATION TYPE: US carotid duplex BILAT DATE OF EXAM: 10/29/2023 COMPARISON: 02/27/14 CLINICAL INDICATION: Male, 78 years old with history of TIA; TIA TECHNIQUE: Carotid duplex ultrasound examination. Indirect Doppler criteria was utilized. FINDINGS: EXAM MEASUREMENTS: RIGHT: Peak Systolic Velocity (PSV) cm/sec ----- Right CCA: 50.5 ----- Right ICA: 62.2 ----- Right ECA: 60.7 ICA/CCA ratio: 1.2 RIGHT: End Diastole cm/sec ----- Right CCA: 16.6 ----- Right ICA: 25.1 ----- Right ECA: 10.9 LEFT: Peak Systolic Velocity (PSV) cm/sec ----- Left CCA: 52.1 ----- Left ICA: 56.4 ----- Left ECA: 58.8 ICA/CCA ratio: 1.08 LEFT: End Diastole cm/sec ----- Left CCA: 13.5 ----- Left ICA: 25.8 ----- Left ECA: 10.8 VERTEBRALS (direction of flow): Right Vertebral: Antegrade Left Vertebral: Antegrade Rhythm: Normal IMPRESSION: No plaque seen or elevated velocities. Criteria for Assigning % of Stenosis / Diameter reduction (Estimation based on the indirect measurements of the internal carotid artery velocities (ICA PSV). 1. Normal (no stenosis)=ICA PSV < 125 cm/s: ratio < 2.0: ICA EDV<40 cm/s. 2. Less than 50% stenosis=ICA PSV < 125 cm/s: ratio < 2.0: ICA EDV<40 cm/s. 3. 50 to 69% stenosis=ICA PSV of 125 to 230 cm/s: ration 2.0 ? 4.0: ICA EDV 40-100 cm/s. 4. Greater than 70% stenosis to near occlusion= ICA PSV > 230 cm/s: ratio > 4.0: ICA EDV > 100 cm/s. 5. Near occlusion= ICA PSV velocities may be low or undetectable: variable ratio and ICA EDV. 6. Total occlusion=unable to detect flow.
--- NOTE | 2023-10-29 20:48 | CT ---
EXAMINATION TYPE: CT angio head neck with contrast and 3-D reconstruction renderings at an independen t workstation DATE OF EXAM: 10/29/2023 HISTORY: Headache, blurred/double vision, RLE heaviness. COMPARISON: CT brain without contrast 10/29/2023 CT DLP: 543.9 mGycm. Automated Exposure Control for Dose Reduction was Utilized. TECHNIQUE: CTA scan of the head and neck is performed with IV Contrast, patient injected with 65 mL o f Isovue 370, axial images are obtained, coronal and sagittal reformatted images are reviewed. 3D rec onstructed images are created on an independent workstation and reviewed. FINDINGS: CT Neck: Bilateral carotid arterial systems are widely patent without significant stenosis or dissect ion. Bilateral vertebral artery systems are widely patent without significant stenosis or dissection. There are no acute incidental findings. CTA Brain: The anterior and posterior arterial systems are widely patent and without significant sten osis, dissection, or aneurysm. There are no acute incidental findings. IMPRESSION: No significant abnormality is seen. NASCET criteria was used in interpretation of this exam?
[2023-10-29] MEDS: hydroCHLOROthiazide 12.5 MG CAP PO SCH (21:55)
[2023-10-29] MEDS: PANTOPRAZOLE 40 MG TABLET PO SCH (21:55)
[2023-10-29] MEDS: LOSARTAN 50 MG TAB PO SCH (21:55)
[2023-10-29] MEDS: LATANOPROST 0.005% OPHTH DROPS 2.5 ML BTL BOTH EYES SCH (21:55)
[2023-10-30] MEDS: ASPIRIN 81 MG PO SCH (08:19)
[2023-10-30] MEDS: ATORVASTATIN 20 MG TAB PO SCH (08:19)
[2023-10-30] MEDS: ENOXAPARIN 40 MG/0.4 ML SYRINGE SQ SCH (08:20)
[2023-10-30 09:15] LABS: Blood Urea Nitrogen 18.7 mg/dL (9.0-27.0); Calcium 8.8 mg/dL (8.7-10.3); Carbon Dioxide 25.6 mmol/L (21.6-31.8); Chloride 106 mmol/L (96-109); Glucose 88 mg/dL (70-110); LDL Cholesterol,Calculated 69.6 mg/dL (0.0-131.0); Magnesium 1.7 mg/dL (1.5-2.4); Potassium 4.2 mmol/L (3.5-5.5); Sodium 141 mmol/L (135-145); VLDL Calculation 13.96 mg/dL (5.00-40.00)
--- NOTE | 2023-10-30 09:40 | P.PN ---
Subjective Progress Note Date: 10/30/23 Hospital course: Patient is a very pleasant 78-year-old male with a past medical history of hypertension, hyperlipidemia, TIA and prostate surgery status post pros tatectomy. He presented to the emergency department with a chief complaint of left-sided headache, blurry/double vision, dizziness, and heaviness/dragging sensation of right lower extremity. Patient underwent evaluation in the emergency department. Upon arrival blood pressure 154/99, heart rate 61, respiratory rate 18, temp 98.0 F, and SpO2 of 98% on room air. EKG completed showing sinus bradycardia at 59 bpm. Chest x-ray completed negative for acute cardiopulmonary process. CT brain completed revealing minimal chronic appearing periventricular white matter ischemic changes otherwise negative for acute intracranial process. CTA head and neck were negative for acute process. Patient was admitted under our services with consultation to neurology. Physical exam: Patient seen and fully evaluated at bedside this morning. Patient reports h eaviness/dragging sensation of right lower extremity has resolved and dizziness has resolved but now has continuous double vision and persistent left temporal headache. Vital signs reviewed and stable. General: Nontoxic, no distress and appears stated age. Derm: Skin warm and dry, normal coloration for ethnicity. Head: Atraumatic, normocephalic and symmetric. Eyes: EOMs intact, no lid lag, and anicteric sclera Mouth: no lip lesions, mucus membranes moist Cardiovascular: regular rate and rhythm with normal S1S2, soft systolic murmur, positive posterior tibial pulses bilaterally, and cap refill < 2 seconds. Lungs: Respirations even, regular, and unlabored on room air. Lungs CTA bilate rally, no rhonchi, no rales, no wheezing, and no accessory muscle usage. Abdominal: soft, nontender to palpation, no guarding, no appreciable organomegaly Ext: ROM intact. No gross muscle atrophy, no edema, no contractures Neuro: Speech clear, face symmetrical and CN II-XII grossly intact with no noted focal neuro deficits Psych: Alert and oriented to person, place, time, and situation. Appropriate and pleasant affect. Assessment and Plan of Care: Headache, blurry/double vision, and dizziness Right lower extremity heaviness/dragging Hypertension Hyperlipidemia History of TIA -Patient reports heaviness/dragging sensation of right lower extremity has resolved and dizziness has resolved but now has continuous double vision and persistent left temporal headache. -CTA head and neck reviewed negative for acute process. -Consult neurology, appreciate recommendations -Continue meclizine 25 mg 4 times daily as needed for vertigo. -Order placed for migraine cocktail consisting of Toradol 15 mg IVP x 1 dose, Benadryl 25 mg IVP x 1 dose, and Compazine 10 mg IVP x 1 dose -Carotid Dopplers negative showing no plaque and no reported stenosis. -Echocardiogram pending. -Hemoglobin A1c 5.5%, lipid profile unremarkable, and TSH of 1.860. -Neuro checks every 4 hours and as needed -Continue aspirin 81 mg daily and atorvastatin 20 mg daily -PT/OT consult -Fall precautions and provide pt with assistance as needed. -Telemetry monitoring. -Order placed for orthostatic vitals. -Order placed for visual acuity testing Data and imaging reviewed: -Carotid Dopplers negative showing no plaque and no reported stenosis. -CTA head and neck reviewed negative for acute process. -Morning labs reviewed. Hemoglobin A1c 5.5%, lipid profile unremarkable, and TSH of 1.860. BMP unremarkable. Magnesium slightly low at 1.7 and orders placed for mag sulfate 2 g IVPB. -Vital signs reviewed. Blood pressure 133/83, heart rate 61, respiratory rate 16, temp 97.2 F, and SpO2 of 98% on room air. CODE STATUS: Full code DVT prophylaxis: Lovenox Anticipated discharge date: 24 to [address]: Home Patient was seen independently by Nurse Practitioner. This document was prepared using [employer] dictation software. Please allow for errors in medical equipment technician while rare they do occur. Paul Madsen NP rendered care for this patient independently, reviewed the findings and plan as documented in the note above. I did not physically speak with or examine the patient on this date. Objective - Vital Signs Vital signs: Vital Signs Temp 97.2 F L 10/30/23 07:00 Pulse 61 10/30/23 07:00 Resp 16 10/30/23 07:00 BP 133/83 10/30/23 07:00 Pulse Ox 98 10/30/23 07:00 FiO2 Intake & Output 10/29/23 10/30/23 10/30/23 18:59 06:59 18:59 Intake Total 10 118 Balance 10 118 Weight 122.47 kg Intake: IV 10 Invasive Line 1 10 Oral 118 Other: # Voids 2 - Labs CBC & Chem 7: 10/29/23 11:05 10/30/23 05:32 Labs: Abnormal Lab Results - Last 24 Hours (Table) 10/29/23 10/29/23 10/29/23 Range/Units 11:00 11:05 12:01 Plt Count 113 L (150-450) k/uL BUN 21 H (9-20) mg/dL Glucose 131 H (74-99) mg/dL POC Glucose (mg/dL) 112 H (70-110) mg/dL Alkaline Phosphatase 132 H (38-126) U/L
[2023-10-30] MEDS: diphenhydrAMINE 50 MG/ML 1 ML VIAL IVP STA (09:54)
[2023-10-30] MEDS: KETOROLAC 15 MG/ML 1 ML VIAL IVP STA (09:54)
[2023-10-30] MEDS: MAGNESIUM SULFATE-D5W PMX 1 GM in DEXTROSE/WATER 1 100ML.BAG IVPB SCH (09:55)
[2023-10-30] MEDS: PROCHLORPERAZINE INJ 10 MG/2 ML VIAL IVP STA (09:55)
--- NOTE | 2023-10-30 15:37 | CA ---
Transthoracic Echo Report Name: Mello Gomes Age: 78 Gender: M : 1945 Exam Date: 10/30/2023 07:47 Exam Location: [facility] Ht (in): 75 Wt (lb): 270 Ordering Physician: Paul Madsen Attending/Referring Phys: Forestry Supervisor Flaca Coon RDCS Procedure CPT: Indications: Evaluate structure and function of heart Cardiac Hx: Technical Quality: Technically difficult study Contrast 1: Total Dose (mL): Contrast 2: Total Dose (mL): MEASUREMENTS (Male / Female) Normal Values 2D ECHO LV Diastolic Diameter PLAX 5.3 cm 4.2 - 5.9 / 3.9 - 5.3 cm LV Systolic Diameter PLAX 3.8 cm IVS Diastolic Thickness 1.1 cm 0.6 - 1.0 / 0.6 - 0.9 cm LVPW Diastolic Thickness 1.1 cm 0.6 - 1.0 / 0.6 - 0.9 cm LV Relative Wall Thickness 0.4 RV Internal Dim ED PLAX 3.8 cm LA Systolic Diameter LX 3.6 cm 3.0 - 4.0 / 2.7 - 3.8 cm LA Volume 71.9 cm??? 18 - 58 / 22 - 52 cm??? LA Volume Index 27.9 cm???/m??? 16 - 28 cm???/m??? M-MODE Aortic Root Diameter MM 4.2 cm MV E Point Septal Separation 1.4 cm AV Cusp Separation MM 2.4 cm DOPPLER AV Peak Velocity 120.6 cm/s AV Peak Gradient 5.8 mmHg MV Area PHT 2.8 cm??? Mitral E Point Velocity 59.1 cm/s Mitral A Point Velocity 76.9 cm/s Mitral E to A Ratio 0.8 MV Deceleration Time 268.0 ms TR Peak Velocity 290.6 cm/s TR Peak Gradient 33.8 mmHg Right Ventricular Systolic Press 38.8 mmHg FINDINGS Left Ventricle Left ventricular ejection fraction is estimated at 55-60 %. Left ventricular cavity size normal. Mildly increased septal wall thickness. Right Ventricle Mild right ventricular dilatation. Mild pulmonary hypertension. Right Atrium Normal right atrial size. Left Atrium Moderately increased left atrial volume. Mildly increased left atrial area. Mitral Valve Structurally normal mitral valve. No mitral stenosis, regurgitation or prolapse. Aortic Valve Trileaflet aortic valve. No aortic valve stenosis or regurgitation. Tricuspid Valve Structurally normal tricuspid valve. Mild tricuspid regurgitation. Pulmonic Valve Structurally normal pulmonic valve. Trace pulmonic regurgitation. Pericardium No pericardial effusion. Aorta Moderate aortic dilatation at the level of the sinuses of valsalva 42 mm CONCLUSIONS Left ventricular EF 55-60% Mild increased left ventricular wall thickness Moderately dilated left atrium No mitral regurgitation Mild tricuspid regurgitation Aortic root dilation measuring 4.2 cm Previewed by: Dr. Rc Chamorro DO (Electronically Signed) Final Date: 30 October 2023 15:36
--- NOTE | 2023-10-31 07:47 | P.CNNES ---
History of Present Illness Consult date: 10/30/23 Requesting physician: Paul Madsen Reason for Consult: dizziness, blurred/double vision and RLE heaviness/weakness History of Present Illness: Patient is a 78-year-old male came to the hospital by ambulance yesterday at 10 :35 AM for new onset diplopia and a headache. Patient states that yesterday morning he woke up at 7:30 AM with double vision. He also had a 4/10 headache pointing to the left frontal region and the left moravian. Patient denies any slurred speech, facial droop, any focal numbness or tingling or focal weakness. He does get sometimes dizzy/off balance when he first stands up but goes away within a few seconds. Denies any vertigo. Denies any leg weakness or arm weakness. As per EMS flowsheet, when they arrived, patient mentioned that he has ongoing constant frontal headache for the last 7 days. When he woke up this morning, he continued with constant headache rating up to 2 and now has diplopia. He denied any recent medication change in the last 4 months. Patient was complaining of lightheadedness, dizziness, nausea but no vomiting. No slurred speech or facial droop or arm droop. Pupils were equal and reactive to light. No chest pain shortness of breath. EKG shows sinus rhythm. Patient continued to complain of headache and double vision during transport. Blood pressure at the scene was 174/107, pulse rate 87 respiration 18 saturation 98%. Blood glucose 132. Vital signs arrival blood pressure 154/99, pulse rate 61. Temperature 98.0. Blood test shows normal CBC PT PTT, normal CMP. TSH normal. CT head revealed minimal chronic appearing periventricular white matter ischemic type changes. No acute intracranial process. Chest x-ray normal. EKG shows sinus bradyc ardia. Patient takes Lipitor 20 mg, aspirin 81 mg, Hyzaar Protonix. Patient states is compliant with medications. Patient is a nonsmoker, does not drink alcohol. He has hypertension and hyperlipidemia but no diabetes. Patient has history of prostate cancer, that was treated with surgery and the cancer was cured. Review of Systems Constitutional: Denies chills, Denies fever Eyes: bilateral blurred vision, bilateral diplopia, bilateral photophobia, denies loss of vision Ears: bilateral: decreased hearing, deny: ear discharge Ears, nose, mouth and throat: Reports headache, Denies sore throat, Denies vertigo Cardiovascular: Reports lightheadedness, Denies chest pain, Denies shortness of breath Respiratory: Denies cough, Denies excessive sputum Gastrointestinal: Denies abdominal pain, Denies diarrhea, Denies nausea, Denies vomiting Genitourinary: Denies dysuria, Denies incontinence Musculoskeletal: Reports low back pain, Denies neck pain Integumentary: Denies pruritus, Denies rash Neurological: Reports as per HPI Psychiatric: Denies anxiety, Denies depression Hematologic/Lymphatic: Denies easy bleeding, Denies easy bruising Past Medical History Past Medical History: Cancer, Hyperlipidemia, Hypertension Additional Past Medical History / Comment(s): hx prostates cancer, 2016 History of Any Multi-Drug Resistant Organisms: None Reported Past Surgical History: Hernia Repair, Orthopedic Surgery, Prostate Surgery Additional Past Surgical History / Comment(s): bilateral HAND TENDON RELEASE, colonoscopy foot Past Anesthesia/Blood Transfusion Reactions: No Reported Reaction Past Psychological History: No Psychological Hx Reported Smoking Status: Never smoker Past Alcohol Use History: None Reported Past Drug Use History: None Reported - Past Family History Father Family Medical History: Myocardial Infarction (OR) Mother Family Medical History: Cancer Medications and Allergies Home Medications Medication Instructions Recorded Confirmed Type Aspirin 81 mg PO DAILY 02/17/23 10/29/23 History Atorvastatin [Lipitor] 20 mg PO DAILY 10/29/23 10/29/23 History Latanoprost [Latanoprost 0.005%] 1 drop BOTH EYES HS 10/29/23 10/30/23 History Losartan/Hydrochlorothiazide 1 tab PO HS 10/29/23 10/29/23 History [Hyzaar 100-12.5 Tablet] Pantoprazole Sodium [Protonix] 20 mg PO HS 10/29/23 10/29/23 History Allergies Allergy/AdvReac Type Severity Reaction Status Date / Time hydrocodone bitartrate Allergy went Verified 10/29/23 11:05 [From Vicodin] "bananas" Physical Examination - Vital Signs Vital Signs: Vital Signs Temp Pulse Pulse Resp BP BP Pulse Ox 10/30/23 08:00 61 16 10/30/23 07:00 97.2 F L 61 16 133/83 98 10/30/23 02:00 98.0 F 56 L 16 123/73 98 10/29/23 20:00 97.7 F 42 L 16 151/92 97 10/29/23 17:53 97.6 F 47 L 16 137/81 99 10/29/23 16:35 97.7 F 16 L 16 140/82 98 10/29/23 16:00 97.9 F 52 L 16 149/95 97 10/29/23 14:00 46 L 13 151/97 97 10/29/23 13:30 44 L 12 141/100 97 10/29/23 13:00 49 L 15 145/90 97 10/29/23 12:22 48 L 18 147/101 98 Intake and Output 10/29/23 10/30/23 10/30/23 22:59 06:59 14:59 Intake Total 118 Balance 118 Intake: Oral 118 Other: Voiding Method Toilet # Voids 2 2 Weight 122.47 kg Patient is an elderly male, very pleasant, in no acute distress. Patient is alert awake oriented to time place and person. Speech and language functions are normal. Patient can name and repeat very well. No aphasia or dysarthria. Attention, concentration and fund of knowledge is adequate. On cranial nerve examination, pupils are equal, round and reacting to light, v isual guevara are full on confrontation, with no neglect on double simultaneous stimulation. Patient has diplopia in the primary gaze. Extraocular muscles reveal partial left lateral rectus palsy. Patient has diplopia only looking to the left side gaze up or down, and slightly in the primary gaze, but goes away with gaze to the right side. Face is symmetric, tongue protrudes to the midline. Palatal elevation and sensation normal, hearing and shoulder shrug normal, facial sensation normal. On muscle strength testing, there is no pronator drift and the strength is normal in arms and legs distally and proximally. Deep tendon reflexes are symmetric diminished, and plantars are downgoing. Sensory to touch is equal with no neglect on double simultaneous stimulation. Cerebellar function showed no ataxia for [id number] testing. No dysdiadochokinesia. No ataxia for [id number] testing on either side. Tone and bulk of muscles normal. Gait deferred.. On general examination, there is no carotid bruit or murmur, S1-S2 audible. Chest is clear on consultation. Abdomen is soft nontender. No organomegaly, bowel sounds present. Peripheral pulses are present. No peripheral edema. Results - Laboratory Findings CBC and BMP: 10/29/23 11:05 10/30/23 05:32 Abnormal Lab Findings: Abnormal Labs 10/29/23 10/29/23 10/29/23 11:00 11:05 12:01 Plt Count 113 L BUN 21 H Glucose 131 H POC Glucose (mg/dL) 112 H Alkaline Phosphatase 132 H Assessment and Plan Assessment: * Diplopia due to left lateral rectus palsy, unclear cause. Patient is not diabetic. * Left frontal temporal headache, new onset, likely due to above. Rule out temporal arteritis. * Hypertension * Hyperlipidemia Plan: MRI of the brain with and without contrast, evaluate for acute CVA, rule out other structural abnormality. 2-D echo revealed normal left-ventricular size, mildly decreased septal wall thickness, LV EF 55-60%. Moderately increased left atrial volume. No MR. Aortic root dilation measuring 4.2 cm. CTA head and neck showed: No significant abnormality. Bilateral vertebral arteries are widely patent without significant stenosis or dissection. No aneurysm. Carotid Doppler, revealed no plaque seen or elevated velocities. Antegrade flow in both vertebral arteries. Fasting a.m. lipid panel cholesterol 136, LDL 69, HDL 52 and triglycerides 69. Lipids are well controlled. Continue Lipitor 20 mg daily. Hemoglobin A1c 5.5. Check ESR, CRP. Optimize control of blood pressure. Continue aspirin 81 mg daily for now. Hold off on DAPT unless MRI shows any ischemic lesion. Neuro checks every 4 hours. Telemetry monitoring rule out any arrhythmia DVT prophylaxis: Lovenox 40 mg subcu daily. Neurology will continue to follow. Thank you for the consult.
[2023-10-31] MEDS: ACETAMINOPHEN TAB 325 MG TAB PO PRN (09:36)
--- NOTE | 2023-10-31 14:33 | P.PN ---
Subjective Progress Note Date: 10/31/23 Hospital course: Patient is a very pleasant 78-year-old male with a past medical history of hypertension, hyperlipidemia, TIA and prostate surgery status post pros tatectomy. He presented to the emergency department with a chief complaint of left-sided headache, blurry/double vision, dizziness, and heaviness/dragging sensation of right lower extremity. Patient underwent evaluation in the emergency department. Upon arrival blood pressure 154/99, heart rate 61, respiratory rate 18, temp 98.0 F, and SpO2 of 98% on room air. EKG completed showing sinus bradycardia at 59 bpm. Chest x-ray completed negative for acute cardiopulmonary process. CT brain completed revealing minimal chronic appearing periventricular white matter ischemic changes otherwise negative for acute intracranial process. CTA head and neck were negative for acute process. Patient was admitted under our services with consultation to neurology. Carotid Dopplers negative showing no plaque and no reported stenosis. Echocardiogram completed showing preserved EF of 55 to 60% with moderately dilated left atrium and mild tricuspid regurgitation with an aortic root measuring 4.2 cm.ss. Physical exam: Patient seen and fully evaluated at bedside this morning. Patient reports continued constant double vision and left-sided headache. The initial heaviness/dragging sensation of right lower extremity has resolved and patient denies any further episodes since arrival to our facility. Patient also denies any further episodes of dizziness. Patient continues to deny any other complaints including changes in hearing or ringing in ears, chest pain, palpitations, shortness of breath, nausea or vomiting or experiencing any numbness/tingling/weakness in his extremities. Vital signs reviewed and stable. General: Nontoxic, no distress and appears stated age. Derm: Skin warm and dry, normal coloration for ethnicity. Head: Atraumatic, normocephalic and symmetric. Eyes: EOMs intact, no lid lag, and anicteric sclera Mouth: no lip lesions, mucus membranes moist Cardiovascular: regular rate and rhythm with normal S1S2, soft systolic murmur, positive posterior tibial pulses bilaterally, and cap refill < 2 seconds. Lungs: Respirations even, regular, and unlabored on room air. Lungs CTA bilaterally, no rhonchi, no rales, no wheezing, and no accessory muscle usage. Abdominal: soft, nontender to palpation, no guarding, no appreciable organomegaly Ext: ROM intact. No gross muscle atrophy, no edema, no contractures Neuro: Speech clear, face symmetrical and CN II-XII grossly intact with no noted focal neuro deficits Psych: Alert and oriented to person, place, time, and situation. Appropriate and pleasant affect. Assessment and Plan of Care: Persistent bilateral diplopia and left-sided headache Dizziness, resolved Right lower extremity heaviness/dragging, resolved Hypertension Asymptomatic bradycardia Hyperlipidemia History of TIA -Neurology following, placed order for MRI. -Awaiting completion of MRI. -Continue meclizine 25 mg 4 times daily as needed for vertigo. -Hemoglobin A1c 5.5%, lipid profile unremarkable, and TSH of 1.860. -Continue neuro checks every 4 hours and as needed -Continue aspirin 81 mg daily and atorvastatin 20 mg daily -PT/OT following -Fall precautions and provide pt with assistance as needed. -Telemetry monitoring. Imaging completed and reviewed throughout hospitalization: -CT brain completed revealing minimal chronic appearing periventricular white matter ischemic changes otherwise negative for acute intracranial process -CTA head and neck reviewed negative for acute process. -Carotid Dopplers negative showing no plaque and no reported stenosis. -Echocardiogram completed showing preserved EF of 55 to 60% with moderately dilated left atrium and mild tricuspid regurgitation with an aortic root measuring 4.2 cm.ss. Data and imaging reviewed this morning: -Echocardiogram completed showing preserved EF of 55 to 60% with moderately dilated left atrium and mild tricuspid regurgitation with an aortic root alpesh suring 4.2 cm. -Vital signs reviewed. Blood pressure 132/76, heart rate 49, respiratory rate 16, temp 98.2 F, and SpO2 of 96% on room air. CODE STATUS: Full code DVT prophylaxis: Lovenox Anticipated discharge date: Discharge delayed pending completion of MRI. Anticipated discharge place: Home Patient was seen independently by Nurse Practitioner. This document was prepared using [employer] dictation software. Please allow for errors in comparison shopper while rare they do occur. Paul Madsen NP rendered care for this patient independently, reviewed the findings and plan as documented in the note above. I did not physically speak with or examine the patient on this date. Objective - Vital Signs Vital signs: Vital Signs Temp 98.2 F 10/31/23 07:15 Pulse 49 L 10/31/23 07:15 Resp 16 10/31/23 07:15 BP 132/76 10/31/23 07:15 Pulse Ox 96 10/31/23 07:15 FiO2 Intake & Output 10/30/23 10/31/23 10/31/23 18:59 06:59 18:59 Intake Total 354 Balance 354 Intake: Oral 354 Other: Voiding Method Toilet # Voids 2 1 - Labs CBC & Chem 7: 10/29/23 11:05 10/30/23 05:32
[2023-10-31] MEDS: predniSONE 20 MG TAB PO SCH (20:49)
[2023-11-01] MEDS: MECLIZINE 25 MG TAB PO PRN (09:37)
--- NOTE | 2023-11-01 09:59 | P.PN ---
Subjective Progress Note Date: 11/01/23 Hospital course: Patient is a very pleasant 78-year-old male with a past medical history of hypertension, hyperlipidemia, TIA and prostate surgery status post pros tatectomy. He presented to the emergency department with a chief complaint of left-sided headache, blurry/double vision, dizziness, and heaviness/dragging sensation of right lower extremity. Patient underwent evaluation in the emergency department. Upon arrival blood pressure 154/99, heart rate 61, respiratory rate 18, temp 98.0 F, and SpO2 of 98% on room air. EKG completed showing sinus bradycardia at 59 bpm. Chest x-ray completed negative for acute cardiopulmonary process. CT brain completed revealing minimal chronic appearing periventricular white matter ischemic changes otherwise negative for acute intracranial process. CTA head and neck were negative for acute process. Patient was admitted under our services with consultation to neurology. Carotid Dopplers negative showing no plaque and no reported stenosis. Echocardiogram completed showing preserved EF of 55 to 60% with moderately dilated left atrium and mild tricuspid regurgitation with an aortic root measuring 4.2 cm.ss. Physical exam: Patient seen and fully evaluated at bedside this morning. Patient continues to report having constant double vision and left-sided headache. He has had no further episodes of initial heaviness/dragging sensation of right lower extremit y since arrival to our facility. He reports 1 episode of vertigo while showering this morning but reports only lasting 1 to 2 minutes before spontaneously resolving. Patient continues to deny any other complaints including chest pain, palpitations, or shortness of breath. Vital signs reviewed and stable. General: Nontoxic, no distress and appears stated age. Derm: Skin warm and dry, normal coloration for ethnicity. Head: Atraumatic, normocephalic and symmetric. Eyes: EOMs intact, no lid lag, and anicteric sclera Mouth: no lip lesions, mucus membranes moist Cardiovascular: regular rate and rhythm with normal S1S2, soft systolic murmur, positive posterior tibial pulses bilaterally, and cap refill < 2 seconds. Lungs: Respirations even, regular, and unlabored on room air. Lungs CTA bilaterally, no rhonchi, no rales, no wheezing, and no accessory muscle usage. Abdominal: soft, nontender to palpation, no guarding, no appreciable organomegaly Ext: ROM intact. No gross muscle atrophy, no edema, no contractures Neuro: Speech clear, face symmetrical and CN II-XII grossly intact with no noted focal neuro deficits Psych: Alert and oriented to person, place, time, and situation. Appropriate and pleasant affect. Assessment and Plan of Care: Persistent bilateral diplopia and left-sided headache Asymptomatic bradycardia Dizziness, resolved Right lower extremity heaviness/dragging, resolved Hypertension Hyperlipidemia History of TIA -Neurology following, discussed plan of care with Dr. Donnelly. He reports that he started patient on prednisone 40 mg daily x 3 days empirically for 6th nerve palsy -Awaiting completion of MRI. -Continue meclizine 25 mg 4 times daily as needed for vertigo. -Hemoglobin A1c 5.5%, lipid profile unremarkable, and TSH of 1.860. -Continue neuro checks every 4 hours and as needed -Continue aspirin 81 mg daily and atorvastatin 20 mg daily -PT/OT following -Fall precautions and provide pt with assistance as needed. -Telemetry monitoring. -Noted pt's HR to be even more bradycardic during the night down into the 30's. Order placed for RN communication to ambulate patient with tele and monitor for chronotropic competency. Imaging completed and reviewed throughout hospitalization: -CT brain completed revealing minimal chronic appearing periventricular white matter ischemic changes otherwise negative for acute intracranial process -CTA head and neck reviewed negative for acute process. -Carotid Dopplers negative showing no plaque and no reported stenosis. -Echocardiogram completed showing preserved EF of 55 to 60% with moderately dilated left atrium and mild tricuspid regurgitation with an aortic root measuring 4.2 cm.ss. Data and imaging reviewed this morning: -Vital signs reviewed. Blood pressure 132/76, heart rate 49, respiratory rate 16, temp 98.2 F, and SpO2 of 96% on room air. CODE STATUS: Full code DVT prophylaxis: Lovenox Anticipated discharge date: Discharge delayed pending completion of MRI. Anticipated discharge place: Home Patient was seen independently by Nurse Practitioner. This document was prepared using [employer] dictation software. Please allow for errors in quill cleaner while rare they do occur. Paul Madsen NP rendered care for this patient independently, reviewed the findings and plan as documented in the note above. I did not physically speak with or examine the patient on this date. Objective - Vital Signs Vital signs: Vital Signs Temp 98.3 F 11/01/23 01:54 Pulse 62 11/01/23 01:54 Resp 16 11/01/23 01:54 BP 138/83 11/01/23 01:54 Pulse Ox 95 11/01/23 01:54 FiO2 Intake & Output 10/31/23 11/01/23 11/01/23 18:59 06:59 18:59 Intake Total 118 Balance 118 Intake: Oral 118 Other: # Voids 2 1 - Labs CBC & Chem 7: 10/29/23 11:05 10/30/23 05:32
--- NOTE | 2023-11-01 11:06 | P.PN ---
Subjective Progress Note Date: 10/31/23 Patient was seen for a follow-up. Patient is laying comfortably in the bed. Continues to have diplopia. Feels it is neither better or worse. Objective - Vital Signs Vital signs: Vital Signs Temp 97.9 F 10/31/23 13:55 Pulse 58 L 10/31/23 13:55 Resp 16 10/31/23 14:00 BP 120/71 10/31/23 13:55 Pulse Ox 97 10/31/23 13:55 FiO2 Intake & Output 10/31/23 10/31/23 11/01/23 06:59 18:59 06:59 Intake Total 118 Balance 118 Intake: Oral 118 Other: # Voids 1 2 - Exam Mental status, speech and language functions normal. Examination only signifi cant for partial left 6th nerve/lateral rectus palsy. - Labs CBC & Chem 7: 10/29/23 11:05 10/30/23 05:32 Assessment and Plan Assessment: * Diplopia due to left lateral rectus ( CN) palsy, unclear cause. Patient is not diabetic. * Left frontal temporal headache, new onset, likely due to above. Rule out temporal arteritis. 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 * Hypertension * Hyperlipidemia Plan: Await MRI of the brain with and without contrast, evaluate for acute CVA, rule out other structural abnormality. 2-D echo revealed normal left-ventricular size, mildly decreased septal wall thickness, LV EF 55-60%. Moderately increased left atrial volume. No MR. Aortic root dilation measuring 4.2 cm. CTA head and neck showed: No significant abnormality. Bilateral vertebral arteries are widely patent without significant stenosis or dissection. No aneurysm. Carotid Doppler, revealed no plaque seen or elevated velocities. Antegrade flow in both vertebral arteries. Fasting a.m. lipid panel cholesterol 136, LDL 69, HDL 52 and triglycerides 69. Lipids are well controlled. Continue Lipitor 20 mg daily. Hemoglobin A1c 5.5. ESR 2, CRP 0.40. Optimize control of blood pressure. Continue aspirin 81 mg daily for now. Hold off on DAPT unless MRI shows any ischemic lesion. Neuro checks every 4 hours. Telemetry monitoring rule out any arrhythmia DVT prophylaxis: Lovenox 40 mg subcu daily. 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 We will empirically give prednisone 40 mg daily for 3 days. If improved, will consider tapering down the dose. Dr. Cb Johnson to start neurology service from 11/02/2023.
--- NOTE | 2023-11-02 08:40 | P.PN ---
Subjective Progress Note Date: 11/01/23 Patient was seen for a follow-up. Patient is laying comfortably in the bed. Continues to have diplopia. Feels it is neither better or worse. Prednisone has not helped so far. Objective - Vital Signs Vital signs: Vital Signs Temp 97.6 F 11/02/23 01:27 Pulse 62 11/02/23 02:00 Resp 16 11/02/23 01:27 BP 128/80 11/02/23 01:27 Pulse Ox 97 11/02/23 01:27 FiO2 Intake & Output 11/01/23 11/02/23 11/02/23 18:59 06:59 18:59 Intake Total 354 Balance 354 Intake: Oral 354 Other: Voiding Method Toilet # Voids 2 1 - Exam Mental status, speech and language functions normal. Examination only significant for partial left 6th nerve/lateral rectus palsy. The left sixth nerve palsy appears to be slightly worse today as compared to yesterday. - Labs CBC & Chem 7: 10/29/23 11:05 10/30/23 05:32 Assessment and Plan Assessment: * Diplopia due to left sixth nerve palsy, with left lateral rectus muscle weakness, unclear cause. Patient is not diabetic. * Left frontal temporal headache, new onset, likely due to above. Rule out temporal arteritis. 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 * Hypertension * Hyperlipidemia Plan: Await MRI of the brain with and without contrast, evaluate for acute CVA, rule out other structural abnormality. 2-D echo revealed normal left-ventricular size, mildly decreased septal wall thickness, LV EF 55-60%. Moderately increased left atrial volume. No MR. Aortic root dilation measuring 4.2 cm. CTA head and neck showed: No significant abnormality. Bilateral vertebral arteries are widely patent without significant stenosis or dissection. No aneurysm. Carotid Doppler, revealed no plaque seen or elevated velocities. Antegrade flow in both vertebral arteries. Fasting a.m. lipid panel cholesterol 136, LDL 69, HDL 52 and triglycerides 69. Lipids are well controlled. Continue Lipitor 20 mg daily. Hemoglobin A1c 5.5. ESR 2, CRP 0.40. Optimize control of blood pressure. Continue aspirin 81 mg daily for now. Hold off on DAPT unless MRI shows any ischemic lesion. Neuro checks every 4 hours. Telemetry monitoring rule out any arrhythmia DVT prophylaxis: Lovenox 40 mg subcu daily. Patient's left 6th nerve palsy appears to be slightly more prominent. Patient was started empirically started on prednisone 40 mg daily on 10/31/2023, at least for 3 days . So far it has not helped and the left sixth nerve palsy seems to be slightly more prominent. Further need for steroids depends upon MRI results and clinical course. Dr. Cb Johnson to start neurology service from 11/02/2023.
[2023-11-02 08:47] LABS: HCT 47.2 % (39.6-50.0); HGB 15.6 g/dL (13.0-17.0); MCHC 33.1 g/dL (32.0-37.0); MCV 87.7 FL (80.0-97.0); Mean Platelet Volume 12.1 FL (9.5-12.2); NRBC Per 100 WBC 0 X 10*3/uL (0.00-0.01); Platelet Count 163 X 10*3/uL (140-440); RBC 5.38 X 10*6/uL (4.40-5.60); RDW 12.6 % (11.5-14.5); WBC 9.88 X 10*3/uL (4.50-10.00)
[2023-11-02 09:01] LABS: BUN/Creat Ratio 20.42 Ratio (12.00-20.00); Blood Urea Nitrogen 24.5 mg/dL (9.0-27.0); Calcium 9.2 mg/dL (8.7-10.3); Carbon Dioxide 27.5 mmol/L (21.6-31.8); Chloride 103 mmol/L (96-109); Glucose 92 mg/dL (70-110); Magnesium 1.9 mg/dL (1.5-2.4); Potassium 3.9 mmol/L (3.5-5.5); Sodium 139 mmol/L (135-145)
--- NOTE | 2023-11-02 11:02 | MR ---
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 CONTRAST: Performed utilizing 12 mL intravenous Gadobutrol gadolinium contrast. TECHNIQUE: Multiplanar, multiecho imaging on a 3.0 [place]ma magnet is performed through the brain. Stud y is performed within 24 hours of arrival to the hospital. The craniovertebral junction is normal. The pituitary is normal. Diffusion-weighted imaging is performed. No abnormal hyperintensity is present to suggest an acute i ntracranial infarct or acute ischemic change. There are a few scattered punctate areas of hyperintensity on T2 and Inversion Recovery weighted sequ ences which are non-specific but can be related to microvascular ischemic changes. 50 nerve root complex appears unremarkable as visualized. No suspicious enhancement is evident. No discrete masses adjacent are evident cerebellar pontine angles are normal. Ventricles and sulci are prominent for the patient age. There is a patent cavum septum pellucidum and cavum vergae, a normal variant. Large retention cyst or within the inferior maxillary sinuses bilaterally. There may be an air-fluid level within the left maxillary sinus. Ethmoid air cells are clear. Mass biliary air cells are clear. Sphenoid sinuses and frontal sinuses appear normal IMPRESSION: 1. No suspicious acute intracranial process. 2. Scattered nonspecific chronic appearing periventricular white matter ischemic-type changes right
--- NOTE | 2023-11-02 15:04 | P.PN ---
Subjective Progress Note Date: 11/02/23 Hospital course: Patient is a very pleasant 78-year-old male with a past medical history of hypertension, hyperlipidemia, TIA and prostate surgery status post pros tatectomy. He presented to the emergency department with a chief complaint of left-sided headache, blurry/double vision, dizziness, and heaviness/dragging sensation of right lower extremity. Patient underwent evaluation in the emergency department. Upon arrival blood pressure 154/99, heart rate 61, respiratory rate 18, temp 98.0 F, and SpO2 of 98% on room air. EKG completed showing sinus bradycardia at 59 bpm. Chest x-ray completed negative for acute cardiopulmonary process. CT brain completed revealing minimal chronic appearing periventricular white matter ischemic changes otherwise negative for acute intracranial process. CTA head and neck were negative for acute process. Patient was admitted under our services with consultation to neurology. Carotid Dopplers negative showing no plaque and no reported stenosis. Echocardiogram completed showing preserved EF of 55 to 60% with moderately dilated left atrium and mild tricuspid regurgitation with an aortic root measuring 4.2 cm.ss. Physical exam: Patient seen and fully evaluated at bedside this morning after returning from MRI. He continues to report persistent double vision and denies any other neurological deficits at this time. He reports continued headache to the left temporal region of head but states it is somewhat improved this morning. Vital signs reviewed and stable. General: Nontoxic, no distress and appears stated age. Derm: Skin warm and dry, normal coloration for ethnicity. Head: Atraumatic, normocephalic and symmetric. Eyes: EOMs intact, no lid lag, and anicteric sclera Mouth: no lip lesions, mucus membranes moist Cardiovascular: regular rate and rhythm with normal S1S2, soft systolic murmur, positive posterior tibial pulses bilaterally, and cap refill < 2 seconds. Lungs: Respirations even, regular, and unlabored on room air. Lungs CTA bilater ally, no rhonchi, no rales, no wheezing, and no accessory muscle usage. Abdominal: soft, nontender to palpation, no guarding, no appreciable organomegaly Ext: ROM intact. No gross muscle atrophy, no edema, no contractures Neuro: Speech clear, face symmetrical and CN II-XII grossly intact with no noted focal neuro deficits Psych: Alert and oriented to person, place, time, and situation. Appropriate and pleasant affect. Assessment and Plan of Care: Persistent bilateral diplopia and left-sided headache Asymptomatic bradycardia Dizziness, resolved Right lower extremity heaviness/dragging, resolved Hypertension Hyperlipidemia History of TIA -Neurology following, discussed plan of care with Dr. Donnelly. He reports that he started patient on prednisone 40 mg daily x 3 days empirically for 6th nerve palsy -Awaiting completion of MRI. -Continue meclizine 25 mg 4 times daily as needed for vertigo. -Hemoglobin A1c 5.5%, lipid profile unremarkable, and TSH of 1.860. -Continue neuro checks every 4 hours and as needed -Continue aspirin 81 mg daily and atorvastatin 20 mg daily -PT/OT following -Fall precautions and provide pt with assistance as needed. -Telemetry monitoring. -RN reports patient with chronotropic competency with heart rate at rest in the 40s increasing to 70s with ambulation. Imaging completed and reviewed throughout hospitalization: -CT brain completed revealing minimal chronic appearing periventricular white matter ischemic changes otherwise negative for acute intracranial process -CTA head and neck reviewed negative for acute process. -Carotid Dopplers negative showing no plaque and no reported stenosis. -Echocardiogram completed showing preserved EF of 55 to 60% with moderately dilated left atrium and mild tricuspid regurgitation with an aortic root measuring 4.2 cm.ss. Data and imaging reviewed this morning: -Vital signs reviewed. Blood pressure 109/72, heart rate 48, respiratory rate 16, temp 96.9 F, and SpO2 of 98% on room air. -Morning labs completed and reviewed. CBC and BMP unremarkable. Blood glucose 92. CODE STATUS: Full code DVT prophylaxis: Lovenox Anticipated discharge date: Discharge delayed pending completion of MRI and clearance by neurology. Anticipated discharge place: Home Patient was seen independently by Nurse Practitioner. This document was prepared using [employer] dictation software. Please allow for errors in clinic specialist while rare they do occur. Paul Madsen NP rendered care for this patient independently, reviewed the findings and plan as documented in the note above. I did not physically speak with or examine the patient on this date. Objective - Vital Signs Vital signs: Vital Signs Temp 97.6 F 11/02/23 01:27 Pulse 62 11/02/23 02:00 Resp 16 11/02/23 01:27 BP 128/80 11/02/23 01:27 Pulse Ox 97 11/02/23 01:27 FiO2 Intake & Output 04/07/24 04/08/24 04/08/24 18:59 06:59 18:59 Intake Total 354 Balance 354 Intake: Oral 354 Other: Voiding Method Toilet # Voids 2 1 - Labs CBC & Chem 7: 11/02/23 05:33 11/02/23 05:33
--- NOTE | 2023-11-02 15:32 | P.PN ---
Subjective Progress Note Date: 11/02/23 I am seeing the patient for the first time during this hospital visit. Please refer to Dr. Donnelly's notes for further details. It seems the patient has diplopia on both eyes recent and he feels it is side to side and worse when looking to left. Also about a week ago he had right leg weakness and felt it was heavy and hard to control it. Denies any fever, recent sickness, recent GI symptoms. Denies history of stroke or TIA. Denies a headache. Objective - Vital Signs Vital signs: Vital Signs Temp 97.6 F 11/02/23 14:17 Pulse 69 11/02/23 14:17 Resp 18 11/02/23 14:17 BP 111/79 11/02/23 14:17 Pulse Ox 95 11/02/23 14:17 FiO2 Intake & Output 11/01/23 11/02/23 11/02/23 18:59 06:59 18:59 Intake Total 354 118 Balance 354 118 Intake: Oral 354 118 Other: Voiding Method Toilet Toilet # Voids 2 1 2 - Exam GENERAL: The patient is lying in bed and is not in acute distress. NEUROLOGICAL: Higher mental function: The patient is awake, alert, oriented to self, place and time. Patient is following commands. No aphasia and no neglect. Cranial nerves: The pupils are round, equal and reactive to light and accommodation. Visual guevara are full to confrontation throughout. Extraocular movement is partial weakness over the left lateral gaze but no nystagmus noted. Facial sensation is normal to touch throughout. The facial strength is normal throughout. Hearing is normal bilaterally to hand rub. Tongue is midline and moved [id number] without any difficulty. No dysarthria is noted. Shoulder shrug is normal bilaterally. Motor: Gait is normal. The strength is 5 over 5 throughout. Normal tone and bulk. Cerebellum: Normal finger to nose heel to fierro bilaterally. Sensation: Sensation is normal to touch throughout. Reflexes (right/left): 1+ in uppers while patellar 0 and ankles 1+. Plantars are downgoing bilaterally. 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 Possible ?hypertensive induced. Patient is not diabetic. Also a week ago had right leg heaviness/weakness and unsure cause. Rule out ?Pabon-Hart Syndrome. No recent sickness, ascending numbness. Does not have any focal weakness other than partial left rectus palsy. * Left frontal temporal headache, new onset, likely due to above. Does not appear temporal arteritis. ESR is normal and headache has resolved. 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 * Hypertension * Hyperlipidemia Plan: MRI Brain: it is reported as no suspicious acute intracranial process. Scattered nonspecific chronic appearing periventricular white ischemic type changes. 2-D echo revealed normal left-ventricular size, mildly decreased septal wall thickness, LV EF 55-60%. Moderately increased left atrial volume. No MR. Aortic root dilation measuring 4.2 cm. CTA head and neck showed: No significant abnormality. Bilateral vertebral arteries are widely patent without significant stenosis or dissection. No aneurysm. Carotid Doppler, revealed no plaque seen or elevated velocities. Antegrade flow in both vertebral arteries. Fasting a.m. lipid panel cholesterol 136, LDL 69, HDL 52 and triglycerides 69. Lipids are well controlled. Continue Lipitor 20 mg daily. Hemoglobin A1c 5.5. ESR 2, CRP 0.40. Optimize control of blood pressure. On aspirin 81 mg daily for now. Neuro checks every 4 hours. Telemetry monitoring rule out any arrhythmia Dr. Donnelly has started him on Prednisonemg daily since 10/31/2023. I will consider discontinuing it. I will pursue with MRI thoracic and lumbar since had recent episode of right leg weakness. If negative will consider lumbar puncture to rule out ?GBS picture/variant DVT prophylaxis: Lovenox 40 mg subcu daily. The plan is discussed with patient and primary team. Time with Patient: Less than 30
--- NOTE | 2023-11-03 16:10 | P.PN ---
Subjective Progress Note Date: 11/03/23 Hospital course: Patient is a very pleasant 78-year-old male with a past medical history of hypertension, hyperlipidemia, TIA and prostate surgery status post pros tatectomy. He presented to the emergency department with a chief complaint of left-sided headache, blurry/double vision, dizziness, and heaviness/dragging sensation of right lower extremity. Patient underwent evaluation in the emergency department. Upon arrival blood pressure 154/99, heart rate 61, respiratory rate 18, temp 98.0 F, and SpO2 of 98% on room air. EKG completed showing sinus bradycardia at 59 bpm. Chest x-ray completed negative for acute cardiopulmonary process. CT brain completed revealing minimal chronic appearing periventricular white matter ischemic changes otherwise negative for acute intracranial process. CTA head and neck were negative for acute process. Patient was admitted under our services with consultation to neurology. Carotid Dopplers negative showing no plaque and no reported stenosis. Echocardiogram completed showing preserved EF of 55 to 60% with moderately dilated left atrium and mild tricuspid regurgitation with an aortic root measuring 4.2 cm.ss. Physical exam: Patient seen and fully evaluated at bedside this morning. He continues to have diplopia in bilateral eyes. No other deficits or complaints reported this morning. He continues to deny further episodes of dizziness or lightheadedness, chest pain, palpitations, shortness of breath, or any other complaints at this time. Patient reports headache is now more intermittently and stays in left temporal region. Vital signs reviewed and stable. General: Nontoxic, no distress and appears stated age. Derm: Skin warm and dry, normal coloration for ethnicity. Head: Atraumatic, normocephalic and symmetric. Eyes: EOMs intact, no lid lag, and anicteric sclera Mouth: no lip lesions, mucus membranes moist Cardiovascular: regular rate and rhythm with normal S1S2, soft systolic murmur, positive posterior tibial pulses bilaterally, and cap refill < 2 seconds. Lungs: Respirations even, regular, and unlabored on room air. Lungs CTA nathaniel aterally, no rhonchi, no rales, no wheezing, and no accessory muscle usage. Abdominal: soft, nontender to palpation, no guarding, no appreciable organomegaly Ext: ROM intact. No gross muscle atrophy, no edema, no contractures Neuro: Speech clear, face symmetrical and CN II-XII grossly intact with no noted focal neuro deficits Psych: Alert and oriented to person, place, time, and situation. Appropriate and pleasant affect. Assessment and Plan of Care: Persistent bilateral diplopia and left-sided headache Asymptomatic bradycardia Dizziness, resolved Right lower extremity heaviness/dragging, resolved Hypertension Hyperlipidemia History of TIA -Neurology following, discussed plan of care with Dr. Johnson. He reports pursuing MRI thoracic and lumbar spine and if negative he reports he may consider doing lumbar puncture to rule out GBS. -Patient completed 3-day course of steroids for empiric treatment of 6th nerve palsy -Awaiting completion of MRI thoracic and lumbar spine. -Continue meclizine 25 mg 4 times daily as needed for vertigo. -Hemoglobin A1c 5.5%, lipid profile unremarkable, and TSH of 1.860. -Continue neuro checks every 4 hours and as needed -Continue aspirin 81 mg daily and atorvastatin 20 mg daily -PT/OT following -Fall precautions and provide pt with assistance as needed. -Telemetry monitoring. -RN reports patient with chronotropic competency with heart rate at rest in the 40s increasing to 70s with ambulation. Imaging completed and reviewed throughout hospitalization: -CT brain completed revealing minimal chronic appearing periventricular white matter ischemic changes otherwise negative for acute intracranial process -CTA head and neck reviewed negative for acute process. -Carotid Dopplers negative showing no plaque and no reported stenosis. -Echocardiogram completed showing preserved EF of 55 to 60% with moderately dilated left atrium and mild tricuspid regurgitation with an aortic root measuring 4.2 cm.. -MRI brain negative for acute intracranial process showing scattered nonspecific chronic appearing periventricular white matter ischemic changes. Data and imaging reviewed this morning: -Vital signs reviewed. Blood pressure 115/61, heart rate 53, respiratory rate 17, temp 97.7 F, and SpO2 of 98% on room air. -MRI brain negative for acute intracranial process showing scattered nonspecific chronic appearing periventricular white matter ischemic changes. CODE STATUS: Full code DVT prophylaxis: Lovenox held for possible LP to be completed tomorrow Anticipated discharge date: Anticipated discharge place: Home Patient waClinical course to determine.s seen independently by Nurse Practitioner. This document was prepared using [employer] dictation software. Please allow for errors in dental sales representative while rare they do occur. Paul Madsen NP rendered care for this patient independently, reviewed the findings and plan as documented in the note above. I did not physically speak with or examine the patient on this date. Objective - Vital Signs Vital signs: Vital Signs Temp 97.7 F 11/03/23 07:00 Pulse 53 L 11/03/23 07:00 Resp 17 11/03/23 07:00 BP 115/61 11/03/23 07:00 Pulse Ox 98 11/03/23 07:00 FiO2 Intake & Output 11/02/23 11/03/23 11/03/23 18:59 06:59 18:59 Intake Total 354 Balance 354 Intake: Oral 354 Other: Voiding Method Toilet Toilet # Voids 2 1 - Labs CBC & Chem 7: 11/02/23 05:33 11/02/23 05:33 Labs: Abnormal Lab Results - Last 24 Hours (Table) 11/02/23 Range/Units 05:33 BUN/Creatinine Ratio 20.42 H (12.00-20.00) Ratio
--- NOTE | 2023-11-03 17:20 | MR ---
EXAMINATION TYPE: MR tspine/lspine wo/w con DATE OF EXAM: 11/03/2023 COMPARISON: HISTORY: Back pain, right leg weakness. CONTRAST: Performed utilizing 12 mL intravenous Gadobutrol gadolinium contrast. TECHNIQUE: Multiplanar, multiecho imaging on a 3.0 [place] magnet is performed through the thoracic spi ne. Spinal cord maintains normal signal through its visualized course. Vertebral body alignment is normal. There is a superior endplate compression deformity at T11 with mild loss of vertebral body height. A more central Schmorl's node type depression is evident within the middle T11 vertebral body. The disc appears to have some enhancement. This could be acute deformity or discitis. Follow-up is recommende d. Some endplate edema changes are seen T10. There is diffuse loss of disc height in the mid and lower thoracic spine. There is some minimal central disc bulge present T9-T10 with minimal anterior thecal sac compression. No AP spinal canal stenosis present. Neural foramen are patent. Some flattening at T7-8 disc bulge is present without cord contact or spinal canal stenosis. Minimal left to right paracentral disc bulging is present without cord contact at the T2-3 level. No spinal canal stenosis. Disc desiccation is present No spinal canal stenosis is evident. IMPRESSION: 1. Mild disc bulging T9-10, T7-8, and T2-3 without cord contact or spinal canal stenosis. 2. Compression deformity mid T11 vertebral body. There is some enhancement of the disc, consider disc itis potentially within the differential. EXAMINATION TYPE: MR tspine/lspine wo/w con DATE OF EXAM: 11/03/2023 COMPARISON: None HISTORY: Back pain, right leg weakness. CONTRAST: 12 mL intravenous Gadobutrol. TECHNIQUE: Multiplanar, multisequence images of the lumbar spine were acquired. FINDINGS: Cord terminates at the L1 level. L5-S1: No significant disc bulge or disc herniation. No spinal canal stenosis. There is a superior e ndplate compression deformity of L5. Moderate bilateral foraminal stenosis is present. L4-L5: No significant disc bulge or disc herniation. No spinal canal stenosis. Moderate bilateral fo raminal stenosis is present. L4-5 facet hypertrophy is present. L3-L4: No significant disc bulge or disc herniation. No spinal canal stenosis. Mild right foraminal narrowing is present. Left foramen is patent. L2-L3: No significant disc bulge or disc herniation. No spinal canal stenosis. No foraminal stenosi s. Mild facet hypertrophy is present. L1-L2: No significant disc bulge or disc herniation. No spinal canal stenosis. No foraminal stenosi s. T12-L1: No significant disc bulge or disc herniation. No spinal canal stenosis. No foraminal stenos is. No abnormal enhancement. IMPRESSION: 1. Foraminal narrowing likely related to facet hypertrophy L3-4 through L5-S1 discussed above. 2. Superior endplate compression deformity without loss of vertebral body height at L5.
[2023-11-04 11:21] LABS: HCT 47.5 % (39.6-50.0); HGB 15.8 g/dL (13.0-17.0); MCH 29.8 pg (27.0-32.0); MCHC 33.3 g/dL (32.0-37.0); MCV 89.5 FL (80.0-97.0); Mean Platelet Volume 12.2 FL (9.5-12.2); NRBC Per 100 WBC 0 X 10*3/uL (0.00-0.01); Platelet Count 156 X 10*3/uL (140-440); RBC 5.31 X 10*6/uL (4.40-5.60); RDW 12.9 % (11.5-14.5); WBC 7.34 X 10*3/uL (4.50-10.00)
--- NOTE | 2023-11-04 11:51 | P.CNOR ---
History of Present Illness - [facility] Consult date: 11/04/23 Consult reason: other (Abnormal MRI findings thoracic/lumbar spine) History of present illness: Patient is a 78-year-old male who presented to [facility] on 10/29/2023 with regards to headache, double vision and dizziness. Patient had been admitted to the hospital at that time, he is being followed by internal medicine and neurology, multiple imaging and lab test have been done. Patient underwent a thoracic and lumbar MRI, there was concern for discitis in the T11/T12 region. Our orthopedic team was then consulted. Patient was evaluated today at bedside, he is resting in his hospital bed. He does have an eye patch to the right eye. Patient does not admit to any acute back pain. Patient has chronic back issues he is dealt with for many years, has not limited his daily activity. Patient did admit to some right leg heaviness that occurred prior to his admission on 10/29/2023 but this has resolved. Patient denies any previous surgery to his thoracic or lumbar spine. Patient denies any numbness or tingling to the bilateral lower extremities, perineal or genital region. He states that we will try to walk longer distances he does get pain in his low back. Patient denies any loss of bowel or bladder function at this time. He denies any recent sicknesses, he does denies any fevers or chills at this time. Review of Systems Constitutional: Reports as per HPI Past Medical History Past Medical History: Cancer, Hyperlipidemia, Hypertension Additional Past Medical History / Comment(s): hx prostates cancer, 2016 History of Any Multi-Drug Resistant Organisms: None Reported Past Surgical History: Hernia Repair, Orthopedic Surgery, Prostate Surgery Additional Past Surgical History / Comment(s): bilateral HAND TENDON RELEASE, colonoscopy foot Past Anesthesia/Blood Transfusion Reactions: No Reported Reaction Past Psychological History: No Psychological Hx Reported Smoking Status: Never smoker Past Alcohol Use History: None Reported Past Drug Use History: None Reported - Past Family History Father Family Medical History: Myocardial Infarction ([place]) Mother Family Medical History: Cancer Medications and Allergies Home Medications Medication Instructions Recorded Confirmed Type Aspirin 81 mg PO DAILY 02/17/23 10/29/23 History Atorvastatin [Lipitor] 20 mg PO DAILY 10/29/23 10/29/23 History Latanoprost [Latanoprost 0.005%] 1 drop BOTH EYES HS 10/29/23 10/30/23 History Losartan/Hydrochlorothiazide 1 tab PO HS 10/29/23 10/29/23 History [Hyzaar 100-12.5 Tablet] Pantoprazole Sodium [Protonix] 20 mg PO HS 10/29/23 10/29/23 History Allergies Allergy/AdvReac Type Severity Reaction Status Date / Time hydrocodone bitartrate Allergy went Verified 10/29/23 11:05 [From Vicodin] "bananas" Physical Examination Gen: AOx3, NAD VSS stable at this time Integument: No open lesions or sores visualized throughout the cervical, thoracic or lumbar spine. There is no areas of erythema or soft tissue swelling Palpation: Nontender with palpation to the cervical, thoracic and lumbar paraspinal and midline region ROM: Full range of motion in all major muscle groups of the bilateral upper and lower extremities, no focal deficits appreciated Sensory Exam: Senory exam to light touch is intact C5-T1 Senosry exam to light touch is intact L2-S1 Motor: 5/5 strength appreciated in the bilateral upper extremities with shoulder elevation, shoulder abduction, elbow extension, elbow flexion, wrist extension, wrist flexion, physician intensivist 5/5 strength appreciated in the bilateral lower extremities with hip flexion, knee extension, knee flexion, plantarflexion, dorsiflexion, EHL, FHL Reflexes: 2/4 in all UE and LE Negative Taqueria's bilaterally Negative Babinski bilaterally Results - Labs Labs: H & H 10/29/23 11/02/23 11/04/23 Range/Units 11:05 05:33 06:19 Hgb 15.0 15.6 15.8 (13.0-17.5) gm/dL Hct 45.7 47.2 47.5 (39.0-53.0) % Coagulation 10/29/23 Range/Units 11:05 INR 1.0 (<1.2) Result Diagrams: 11/04/23 06:19 11/02/23 05:33 Assessment and Plan Assessment: Diplopia Dizziness Chronic low back pain Multilevel thoracic spondylosis Multilevel lumbar spondylosis Other medical comorbidities Plan: Imaging: I was able to review the thoracic and lumbar MRI, this to include images and reports my attending Dr. Coronado. No acute fractures or dislocations noted. There is multilevel lumbar and thoracic spondylosis with vertebral body height changes. No acute changes to the T11 this to suggest obvious discitis Plan: After discussion of patient's physical exam findings and imaging studies with my attending Dr. Coronado, there is low concern for discitis at this time. Patient's white blood cell count is normal, there is no elevations noted in the CRP or sed rate. Patient has degenerative changes throughout the thoracic and lumbar spine. Patient admits to back pain that has bothered him for many years but he is able to tolerate very well. He has no neuropathic signs at this time, he has no obvious strength deficits in the lower extremities or upper extremities. GI and DVT prophylaxis per primary medical service Weight-bear as tolerated Discharge planning: On orthopedic standpoint patient remains stable. Our follow-up information will be placed in chart if patient like to follow-up to discuss his low back issues. Time with Patient: Less than 30
[2023-11-04 11:53] LABS: ALT 76 U/L (10-49); AST 53 U/L (14-35); Albumin 3.9 g/dL (3.8-4.9); Alkaline Phosphatase 126 U/L (41-126); BUN/Creat Ratio 21.07 Ratio (12.00-20.00); Blood Urea Nitrogen 29.5 mg/dL (9.0-27.0); Calcium 9.2 mg/dL (8.7-10.3); Carbon Dioxide 29.4 mmol/L (21.6-31.8); Chloride 101 mmol/L (96-109); Globulin 2.3 g/dL (1.6-3.3); Glucose 83 mg/dL (70-110); Magnesium 1.8 mg/dL (1.5-2.4); Potassium 4.4 mmol/L (3.5-5.5); Sodium 139 mmol/L (135-145); Total Bilirubin 0.8 mg/dL (0.3-1.2); Total Protein 6.2 g/dL (6.2-8.2)
[2023-11-04 13:53] VITALS: BMI 33.7
--- NOTE | 2023-11-04 14:07 | P.PN ---
Subjective Progress Note Date: 11/04/23 78-year-old male with a past medical history of hypertension, hyperlipidemia, TIA and prostate surgery status post prostatectomy. He presented to the emergency department with a chief complaint of left-sided headache, blurry/double vision, dizziness, and heaviness/dragging sensation of right lower extremity. Patient underwent evaluation in the emergency department. Upon arrival blood pressure 154/99, heart rate 61, respiratory rate 18, temp 98.0 F, and SpO2 of 98% on room air. EKG completed showing sinus bradycardia at 59 bpm. Chest x-ray completed negative for acute cardiopulmonary process. CT brain completed revealing minimal chronic appearing periventricular white matter ischemic changes otherwise negative for acute intracranial process. CTA head and neck were negative for acute process. Patient was admitted under our services with consultation to neurology. Carotid Dopplers negative showing no plaque and no reported stenosis. Echocardiogram completed showing preserved EF of 55 to 60% with moderately dilated left atrium and mild tricuspid regurgitation with an aortic root measuring 4.2 cm. Neurology recommended MRI brain T and L spine. MRI brain negative for acute process, no spinal canal stenosis, compression deformity T11, consider discitis. Orthopedic surgery consulted, recommended outpatient follow up. 11/03 Patient was seen and examined. He reports diplopia that resolves when he covers one of his eyes. RLE weakness is resolved. Discussed with Dr. Johnson, plans for LP today. CBC unremarkable. BMP BUN 29.5 GFR 52 BUN/Cr 21.07 AST 53 ALT 76. General: non toxic, no distress, appears at stated age Derm: warm, dry Head: atraumatic, normocephalic, symmetric Eyes: EOMI, no lid lag, anicteric sclera Mouth: no lip lesion, mucus membranes moist Cardiovascular: good distal perfusion in all 4 extremities. Lungs: breathing comfortably , no accessory muscle use Ext: no gross muscle atrophy, no edema, no contractures Neuro: no focal neuro deficits Psych: Alert, oriented, appropriate affect Based on my assessment of this patient, this patient meets a high complexity level of care. Patient has an acute diagnosis of diplopia with RLE weakness and headache that poses a threat to life or bodily function. Persistent bilateral diplopia and left-sided headache: Plans for LP as discussed with Dr. Johnson. 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 Asymptomatic bradycardia Dizziness: Resolved. Right lower extremity heaviness: Resolved. MRI T and L spine as above. Orthopedic surgery outpatient follow up. Hypertension: Losartan 100 mg PO QHS. HCTZ 12.5 mg PO QD. Hyperlipidemia: Lipitor 20 mg PO QD. History of TIA: ASA 81 mg PO QD. CODE STATUS: FULL CODE DVT Prophylaxis: SCD GI Prophylaxis: Protonix Designated medical POA if patient is not able to make medical decisions for themselves: I have reviewed the following technical sales consultant notes: Orthopedic Sx. I have reviewed the results of the following tests: MRI brain. T + L spine. CBC, CMP. I have ordered the following tests: I have discussed the care of this patient with the following independent histori an: I have independently interpreted the following test below: I have discussed the management of this patient with the following physician: Dr. Johnson as above. Objective - Vital Signs Vital signs: Vital Signs Temp 97.8 F 11/04/23 13:58 Pulse 56 L 11/04/23 13:58 Resp 18 11/04/23 13:58 BP 108/69 11/04/23 13:58 Pulse Ox 100 11/04/23 13:58 FiO2 Intake & Output 11/03/23 11/04/23 11/04/23 18:59 06:59 18:59 Intake Total 1228 780 Balance 1228 780 Weight 122.47 kg Intake: Oral 1228 780 Other: Voiding Method Toilet Toilet # Voids 2 2 1 - Labs CBC & Chem 7: 11/04/23 06:19 11/04/23 06:19 Labs: Abnormal Lab Results - Last 24 Hours (Table) 11/04/23 Range/Units 06:19 BUN 29.5 H (9.0-27.0) mg/dL Est GFR (CKD-EPI) 52 L (>=60) BUN/Creatinine Ratio 21.07 H (12.00-20.00) Ratio AST 53 H (14-35) U/L ALT 76 H (10-49) U/L
[2023-11-04 14:38] VITALS: BP 108/69; PULSE 56; RESP 18; TEMP 97.8
--- NOTE | 2023-11-04 15:23 | P.DS ---
Providers Date of admission: 10/29/23 14:03 Expected date of discharge: 11/04/23 Attending physician: Dawit Alberts MD Consults: 10/29/23 15:34 Consult Physician Routine Consulting Provider: Blaze Donnelly Consult Reason/Comments: dizziness, blurred/double vision and RLE heaviness/weakness Do you want consulting provider notified?: Yes 11/04/23 07:56 Consult Physician Routine Consulting Provider: Dylon Coronado Consult Reason/Comments: discitis rle weakness Do you want consulting provider notified?: Yes Primary care physician: Stated None Hospital Course: 78-year-old male with a past medical history of hypertension, hyperlipidemia, TIA and prostate surgery status post prostatectomy. He presented to the emergency department with a chief complaint of left-sided headache, blurry/double vision, dizziness, and heaviness/dragging sensation of right lower extremity. Patient underwent evaluation in the emergency department. Upon arrival blood pressure 154/99, heart rate 61, respiratory rate 18, temp 98.0 F, and SpO2 of 98% on room air. EKG completed showing sinus bradycardia at 59 bpm. Chest x-ray completed negative for acute cardiopulmonary process. CT brain completed revealing minimal chronic appearing periventricular white matter ischemic changes otherwise negative for acute intracranial process. CTA head and neck were negative for acute process. Patient was admitted under our services with consultation to neurology. Carotid Dopplers negative showing no plaque and no reported stenosis. Echocardiogram completed showing preserved EF of 55 to 60% with moderately dilated left atrium and mild tricuspid regurgitation with an aortic root measuring 4.2 cm. Neurology recommended MRI brain T and L spine. MRI brain negative for acute process, no spinal canal stenosis, compression deformity T11, consider discitis. Orthopedic surgery consulted, recommended outpatient follow up. 11/03 Patient was seen and examined. He reports diplopia that resolves when he covers one of his eyes. RLE weakness is resolved. Discussed with Dr. Johnson, plans for LP today. CBC unremarkable. BMP BUN 29.5 GFR 52 BUN/Cr 21.07 AST 53 ALT 76. Patient refused LP. Discussed with Dr. Johnson, cleared from his perspective for discharge. Advised to follow up with PCP within 1-2 days of discharge. Follow up with Opthalmology within 1 week of discharge. Follow up with Neurology within 1 week of discharge. Please refer to progress note for physical exam. Discharge Diagnosis: Persistent bilateral diplopia and left-sided headache Asymptomatic bradycardia Dizziness Right lower extremity heaviness Hypertension Hyperlipidemia History of TIA This compex discharge took 35 minutes to complete. Patient Condition at Discharge: Stable Plan - Discharge Summary New Discharge Prescriptions: Continue Atorvastatin [Lipitor] 20 mg PO DAILY Aspirin 81 mg PO DAILY Losartan/Hydrochlorothiazide [Hyzaar 100-12.5 Tablet] 1 tab PO HS Pantoprazole Sodium [Protonix] 20 mg PO HS Latanoprost [Latanoprost 0.005%] 1 drop BOTH EYES HS Discharge Medication List Aspirin 81 mg PO DAILY 02/17/23 [History] Atorvastatin [Lipitor] 20 mg PO DAILY 10/29/23 [History] Latanoprost [Latanoprost 0.005%] 1 drop BOTH EYES HS 10/29/23 [History] Losartan/Hydrochlorothiazide [Hyzaar 100-12.5 Tablet] 1 tab PO HS 10/29/23 [History] Pantoprazole Sodium [Protonix] 20 mg PO HS 10/29/23 [History] Follow up Appointment(s)/Referral(s): Parker Tuttle MD [STAFF PHYSICIAN] - 1 Week None,Stated [Primary Care Provider] - 1-2 days Dylon Coronado DO [Doctor of Osteopathic Medicine] - As Needed Manoj Del Cid DO [STAFF PHYSICIAN] - 1 Week Patient Instructions/Handouts: Bradycardia (DC), Diplopia (DC) Discharge Disposition: HOME SELF-CARE
--- NOTE | 2023-11-04 17:14 | P.PN ---
Subjective Progress Note Date: 11/04/23 I am following-up with patient and he continues to have diplopia but otherwise no new neurological issues. Objective - Vital Signs Vital signs: Vital Signs Temp 97.8 F 11/04/23 13:58 Pulse 56 L 11/04/23 13:58 Resp 18 11/04/23 13:58 BP 108/69 11/04/23 13:58 Pulse Ox 100 11/04/23 13:58 FiO2 Intake & Output 11/03/23 11/04/23 11/04/23 18:59 06:59 18:59 Intake Total 1228 780 Balance 1228 780 Weight 122.47 kg Intake: Oral 1228 780 Other: Voiding Method Toilet Toilet # Voids 2 2 1 - Exam GENERAL: The patient is lying in bed and is not in acute distress. NEUROLOGICAL: Higher mental function: The patient is awake, alert, oriented to self, place and time. Patient is following commands. No aphasia and no neglect. Cranial nerves: The pupils are round, equal and reactive to light and accommodation. Visual guevara are full to confrontation throughout. Extraocular movement is partial weakness over the left lateral gaze but no nystagmus noted. Facial sensation is normal to touch throughout. The facial strength is normal throughout. Hearing is normal bilaterally to hand rub. Tongue is midline and moved [id number] without any difficulty. No dysarthria is noted. Shoulder shrug is normal bilaterally. Motor: Gait is normal. The strength is 5 over 5 throughout. Normal tone and bulk. Cerebellum: Normal finger to nose heel to fierro bilaterally. Sensation: Sensation is normal to touch throughout. Reflexes (right/left): 1+ in uppers while patellar 0 and ankles 1+. Plantars are downgoing bilaterally. 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 Patient is not diabetic. Also a week ago had transient right leg heaviness/weakness and unsure if due to compression deformity T11 with some enhancement of disc with questionable discitis. No recent sickness, ascending numbness. Currently does not have any focal weakness other than partial left rectus palsy. * compression deformity T11 with some enhancement of disc with questionable disc itis seen on MRI * Left frontal temporal headache, new onset, likely due to above. Does not appear temporal arteritis. ESR is normal and headache has resolved. 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 * Hypertension * Hyperlipidemia Plan: MRI Brain: it is reported as no suspicious acute intracranial process. Scattered nonspecific chronic appearing periventricular white ischemic type changes. MRI Thoracic/lumbar: compression deformity T11 with some enhancement of disc with questionable discitis as differential. 2-D echo revealed normal left-ventricular size, mildly decreased septal wall thickness, LV EF 55-60%. Moderately increased left atrial volume. No MR. Aortic root dilation measuring 4.2 cm. CTA head and neck showed: No significant abnormality. Bilateral vertebral arteries are widely patent without significant stenosis or dissection. No aneurysm. Carotid Doppler, revealed no plaque seen or elevated velocities. Antegrade flow in both vertebral arteries. Fasting a.m. lipid panel cholesterol 136, LDL 69, HDL 52 and triglycerides 69. Lipids are well controlled. Continue Lipitor 20 mg daily. Hemoglobin A1c 5.5. ESR 2, CRP 0.40. Notified patient to pursue with lumbar puncture to help if any additional information but he opted out of it. Optimize control of blood pressure. On aspirin 81 mg daily for now. Neuro checks every 4 hours. Telemetry monitoring rule out any arrhythmia Dr. Donnelly has started him on Prednisone 40mg daily since 10/31/2023. And is discontinued DVT prophylaxis: Lovenox 40 mg subcu daily. Recommend the patient to follow-up with neurologist and Ophthamologist as outpatient within 1-2 weeks. The plan is discussed with patient and primary team. There is no further neurological work-up. Time with Patient: Less than 30
== END 2023-11-04 17:19 | disposition home or self-care (01) | DRG 123 ==
LOC: EC 10:35 → 6NMEDSUR 14:03 → OBSVTOIN 14:03 → 6NMEDSUR 14:32
PROVIDERS: ADMIT Student in an Organized Health Care Education/Training Program; ATTEND Student in an Organized Health Care Education/Training Program
DX: H49.22 Sixth [abducent] nerve palsy, left eye (principal); I11.9 Hypertensive heart disease without heart failure; I07.1 Rheumatic tricuspid insufficiency; E78.5 Hyperlipidemia, unspecified; R00.1 Bradycardia, unspecified; H53.2 Diplopia; G89.29 Other chronic pain; M47.814 Spondylosis without myelopathy or radiculopathy, thoracic region; M47.816 Spondylosis without myelopathy or radiculopathy, lumbar region; J32.0 Chronic maxillary sinusitis; R51.9 Headache, unspecified; Z66 Do not resuscitate; Z86.73 Personal history of transient ischemic attack (TIA), and cerebral infarction without residual deficits; Z85.46 Personal history of malignant neoplasm of prostate; Z90.79 Acquired absence of other genital organ(s); Z79.82 Long term (current) use of aspirin; Z79.899 Other long term (current) drug therapy; Z88.5 Allergy status to narcotic agent
CPT/HCPCS: 36415; 70450; 70496; 70498; 70553; 71046; 72157; 72158; 80048; 80053; 80061; 83036; 83735; 83880; 84443; 84484; 85025; 85027; 85610; 85652; 85730; 86140; 93005; 93306; 93880; 99285

== ENCOUNTER → 2023-11-16 | Outpatient (CLI) | payer MEDICARE | END | disposition home or self-care (01) | LOC: LABWHC1 12:10 | PROVIDERS: ATTEND Radiology Radiation Oncology | DX: Z08 Encounter for follow-up examination after completed treatment for malignant neoplasm (principal); Z85.46 Personal history of malignant neoplasm of prostate; Z92.3 Personal history of irradiation; Z90.79 Acquired absence of other genital organ(s) | CPT/HCPCS: 36415; 84153 ==

== ENCOUNTER → 2023-12-22 | Outpatient (CLI) | payer MEDICARE ==
[2023-12-22 11:51] LABS: Partial Thromboplastin Time 24.9 sec (22.0-30.0)
[2023-12-22 12:06] LABS: Prothrombin Time 10.7 sec (10.0-12.5)
[2023-12-22 15:41] LABS: HCT 46.9 % (39.6-50.0); HGB 15.3 g/dL (13.0-17.0); MCH 29.5 pg (27.0-32.0); MCHC 32.6 g/dL (32.0-37.0); MCV 90.5 FL (80.0-97.0); Mean Platelet Volume 12.3 FL (9.5-12.2); NRBC Per 100 WBC 0 X 10*3/uL (0.00-0.01); Platelet Count 155 X 10*3/uL (140-440); RBC 5.18 X 10*6/uL (4.40-5.60); RDW 12.6 % (11.5-14.5); WBC 5.62 X 10*3/uL (4.50-10.00)
[2023-12-22 15:58] LABS: ALT 18 U/L (10-49); AST 19 U/L (14-35); Albumin/Globulin Ratio 1.82 Ratio (1.60-3.17); Alkaline Phosphatase 138 U/L (41-126); BUN/Creat Ratio 14.69 Ratio (12.00-20.00); Blood Urea Nitrogen 19.1 mg/dL (9.0-27.0); Calcium 9.8 mg/dL (8.7-10.3); Carbon Dioxide 26.6 mmol/L (21.6-31.8); Chloride 104 mmol/L (96-109); Globulin 2.2 g/dL (1.6-3.3); Glucose 125 mg/dL (70-110); Potassium 3.6 mmol/L (3.5-5.5); Sodium 142 mmol/L (135-145); Total Bilirubin 0.8 mg/dL (0.3-1.2); Total Protein 6.2 g/dL (6.2-8.2)
== END | disposition home or self-care (01) ==
LOC: LABPAT 11:02
PROVIDERS: ATTEND Orthopaedic Surgery Sports Medicine
DX: Z01.818 Encounter for other preprocedural examination (principal); M17.12 Unilateral primary osteoarthritis, left knee; I44.4 Left anterior fascicular block; R94.31 Abnormal electrocardiogram [ECG] [EKG]; R00.1 Bradycardia, unspecified; Z22.322 Carrier or suspected carrier of Methicillin resistant Staphylococcus aureus
CPT/HCPCS: 36415; 80053; 85027; 85610; 85730; 87070; 93005

== ENCOUNTER 2024-01-21 07:41 | Day surgery (SDC) | payer MEDICARE ==
[~2024-01-21 07:41] MED LIST changes: -BUPIVACAINE (PF) 0.25% 30 ML VIAL SQ ONE; -DEXAMETHASONE SOD PHOSPHATE 4 MG/ML 1 ML VIAL IV ONE; -DEXAMETHASONE SOD PHOSPHATE 4 MG/ML 1 ML VIAL ONE; -GLYCOPYRROLATE 0.2 MG/ML 2 ML VIAL ONE; -HYDROmorphone (PF) 1 MG/ML ONE; -LACTATED RINGERS 1,000 ML IV SCH; -LIDOCAINE 1% (10MG/ML) FOR IV START INTRADERMA PRN; -LIDOCAINE 2% INJ 20 MG/ML (2 ML VIAL) ONE; -METOCLOPRAMIDE 5 MG/ML 2 ML VIAL IVP PRN; -MIDAZOLAM 2 MG/2 ML VIAL IVP ONE; -ONDANSETRON 4 MG/2 ML VIAL IVP ONE; +ONDANSETRON 4 MG/2 ML VIAL IVP PRN; -ONDANSETRON 4 MG/2 ML VIAL ONE; -PHENYLEPHRINE-0.9% NACL SYG 1,000 MCG/10 ML SYRINGE ONE; -PROPOFOL 10 MG/ML 20 ML VIAL IV ONE; -ROPIVACAINE 5 MG/ML 30 ML VIAL ONE; +TRANEXAMIC 1,000 MG/100ML-NACL 1,000 MG in SALINE 1 100ML.BAG IVPB PRN; -ceFAZolin 3 GM in SODIUM CHLORIDE 0.9% 100 ML IVPB PRN; -fentaNYL (PF) 50 MCG/ML 2 ML AMP IVP ONE; -fentaNYL (PF) 50 MCG/ML 2 ML AMP ONE
[2024-01-21] MEDS ORDERED: fentaNYL (PF) 50 MCG/ML 2 ML AMP IVP PRN (08:10)
[2024-01-21] MEDS ORDERED: MIDAZOLAM 2 MG/2 ML VIAL IV PRN (08:10)
[2024-01-21] MEDS ORDERED: HYDROmorphone 0.5 MG/0.5 ML SYRINGE IVP PRN ×4 (08:10→10:32)
[2024-01-21] MEDS: ACETAMINOPHEN TAB 500 MG TAB PO PRN (09:08)
[2024-01-21] MEDS: LACTATED RINGERS 1,000 ML IV SCH ×2 (09:08→16:50)
[2024-01-21] MEDS: GABAPENTIN 300 MG CAP PO PRN (09:09)
[2024-01-21] MEDS: ONDANSETRON 4 MG/2 ML VIAL IVP ONE (09:09)
[2024-01-21] MEDS: MELOXICAM 7.5 MG TAB PO PRN (09:09)
[2024-01-21] MEDS: DEXAMETHASONE SOD PHOSPHATE 4 MG/ML 1 ML VIAL IV ONE (09:09)
[2024-01-21] MEDS: LIDOCAINE 1% (10MG/ML) FOR IV START INTRADERMA PRN (09:09)
[2024-01-21] MEDS: MIDAZOLAM 2 MG/2 ML VIAL IVP ONE (09:37)
[2024-01-21] MEDS: IV FLUID CONTINUATION 1,000 ML IV ONE (09:56)
[2024-01-21] MEDS ORDERED: ePHEDrine 50 MG/ML 1 ML VIAL ONE (10:23)
[2024-01-21] MEDS ORDERED: PROPOFOL 10 MG/ML 20 ML VIAL IV ONE (10:23)
[2024-01-21] MEDS ORDERED: ROPIVACAINE 5 MG/ML 30 ML VIAL ONE (10:23)
[2024-01-21] MEDS ORDERED: fentaNYL (PF) 50 MCG/ML 2 ML AMP ONE (10:23)
[2024-01-21] MEDS ORDERED: DEXAMETHASONE SOD PHOSPHATE 4 MG/ML 1 ML VIAL ONE (10:23)
[2024-01-21] MEDS ORDERED: TRANEXAMIC 1,000 MG/100ML-NACL PREMIX BAG ONE (10:23)
[2024-01-21] MEDS ORDERED: PHENYLEPHRINE 10 MG/ML VIAL ONE (10:23)
[2024-01-21] MEDS: ceFAZolin 3 GM in SODIUM CHLORIDE 0.9% 100 ML IVPB PRN (10:27)
[2024-01-21] MEDS: ceFAZolin 3,000 MG in SODIUM CHLORIDE 0.9% IRRIGATIO 3,000 ML IRRIGATION ONE (10:31)
[2024-01-21] MEDS ORDERED: bisacodyL 10 MG SUPP RECTAL PRN (10:32)
[2024-01-21] MEDS ORDERED: MAGNESIUM HYDROXIDE 2,400 MG/30 ML CUP PO PRN (10:32)
[2024-01-21] MEDS ORDERED: ONDANSETRON 4 MG/2 ML VIAL IVP PRN (10:32)
[2024-01-21] MEDS ORDERED: NALOXONE 0.4 MG/ML 1 ML VIAL IV PRN (10:32)
[2024-01-21] MEDS ORDERED: TEMAZEPAM 15 MG CAP PO PRN (10:32)
[2024-01-21] MEDS ORDERED: hydrOXYzine pamoate 25 MG CAP PO PRN (10:32)
[2024-01-21] MEDS: LACTATED RINGERS 1,000 ML IV ONE (11:20)
--- NOTE | 2024-01-21 13:28 | XR ---
EXAMINATION TYPE: XR knee limited LT DATE OF EXAM: 01/21/2024 1:18 PM CLINICAL INDICATION:Male, 78 years old with history of Evaluation for Postop abnormality and alignmen t; [facility] COMPARISON: None. TECHNIQUE: XR knee limited LT; examined in Frontal, lateral and oblique projections. FINDINGS: Status post total knee arthroplasty changes with hardware in appropriate alignment and in tact. No evidence of fracture. Remote appearing tibial plateau fracture. Subcutaneous lucencies and l ucencies within the joint consistent with surgical changes. IMPRESSION: Status post total knee arthroplasty changes with hardware intact and appropriate alignment. No fractu res identified.
--- NOTE | 2024-01-21 13:40 | OP ---
OPERATIVE REPORT DATE OF SERVICE : 01/21/2024 FOOD STAND MANAGER: Rossy Ryan PA-C. PREOPERATIVE DIAGNOSIS: Left knee osteoarthrosis. POSTOPERATIVE DIAGNOSIS: Left knee osteoarthrosis. OPERATION: Left total knee arthroplasty. ANESTHESIA: Spinal with sedation. ESTIMATED BLOOD LOSS: 100 mL. TOURNIQUET TIME: 70 minutes at 250 mmHg. COMPLICATIONS: None apparent. DRAINS: None. DISPOSITION: Postanesthesia care unit. INDICATIONS FOR PROCEDURE: Mello is a very pleasant 78-year-old male with longstanding history of left knee pain. History and physical examination were consistent with advanced left knee osteoarthrosis. He also had a previous tibial plateau fracture over 30 years ago. He has been through significant operative management up to this point. Further treatment options were discussed, and he decided to go forward with the left total knee arthroplasty. The risks of procedure were discussed with him in detail. These risks included, but were not limited to, risk of infection, nerve damage, bleeding, pain, and a small risk of deep vein thrombosis which could lead to fatal pulmonary embolism. There is also a small risk of loosening of the implant which could require revision operation. The patient understands these risks. All of his questions with regard to the procedure were answered to his satisfaction. Appropriate informed consent was obtained. DESCRIPTION OF PROCEDURE: The patient was identified in the preoperative holding area. Surgical site was marked by both the patient and myself. He was given 3 g of Ancef IV for prophylactic purposes. He was then transported to operative suite. He was placed supine on the operating room table. Spinal anesthetic was administered and dosed per the anesthesia without apparent complication. Examination under anesthesia was then performed. The patient was 2 to 3 degrees shy of full extension. He had 100 degrees of flexion. Medial collateral ligament, lateral collateral ligament, and posterior cruciate ligaments were stable. Tourniquet was then placed high on the left upper thigh, well-padded in preparation for surgery. The patient's left lower extremity was then prepped and draped in usual sterile fashion. Standard surgical pause was undertaken to ensure that we were operating the correct site and appropriate preoperative antibiotics had been given. All staff in room were in agreement, and we proceeded. The outlines of the patella were marked with a surgical pen. A planned 12 cm vertical incision centered over the patella was marked with a surgical pen. The leg was exsanguinated with an Esmarch dressing. The knee was then flexed, and tourniquet was inflated to 250 mmHg. The total tourniquet time for the procedure was 70 minutes. Incision was then made with a 10-blade scalpel. Dissection was carried down sharply overlying fascia. Great care was taken to minimize the skin flaps. The knee was then exposed using a standard medial parapatellar approach. A small cuff of quadriceps tendon was then left for suturing. He was in a small bit of varus preoperatively. A standard medial release was then made. The superficial medial collateral ligament was minimally dissected off the bone around to the posterior aspect of the proximal tibia. Medial meniscus was then excised as well. The lateral meniscus was also released anteriorly. The leg was then externally rotated. The patella was everted. The knee was flexed. Retractors were then placed to protect the collateral ligaments. I then proceeded to remove the infrapatellar fat pad. This was excised sharply tangentially with the fibers of the patellar tendon. I then proceeded to remove the peripheral osteophytes. This was done with a rongeur. I then proceeded with the distal femoral resection. He did have near full extension. A planned 9-mm resection was then done. The femoral canal was then entered in the midline, the femur approximately 10 mm anterior to the origin of the posterior cruciate ligament. The jensen was then advanced down to the center of the femur, placed intramedullary. Based on the preoperative radiographs, the angle between the anatomic and mechanical axis of the femur was approximately 4 to 5 degrees. The valgus angle of the distal femoral cutting guide was then set at 4 degrees for the left knee. The distal femoral cutting guide was then advanced over the intramedullary jensen. This was seated firmly against the femur. Then, as mentioned, planned to take 9 mm off the distal femur. The cutting block was then secured onto the femur with pins. The jig was then removed and the distal femoral cut was made through the slot of the block. The pins were removed and the distal femoral cutting block was removed. The accuracy of the distal femoral cuts was checked with 2 flat bars. I then proceeded with femoral sizing. Posterior referencing sizing guide was held firmly against the resected surface of the femur. The posterior condyles were resting on the posterior plane of the guide. The sizing guide was then placed on the anterior femur. The size was measured as a size 11. I then assessed for femoral rotation. The plan was for 3 degrees of external rotation. Three degrees of external rotation was placed onto the jig. These holes were then marked. I then confirmed the rotation by 3 separate methods. This was done using epicondylar axis as well as [place]ites[place] line and posterior referencing. It was deemed that the external rotation was proper. I then went forward to placing the femoral cutting block. This was placed over the previously placed pin holes. The Shahid wing was then placed on the anterior slots to ensure that we would not notch the anterior femur with the anterior femoral cut. I then proceeded with the anterior femoral cut. This was flushed with the anterior cortex of the femur. The posterior cuts were then made followed by the anterior chamfer cut and the posterior chamfer cut. The cutting block was then removed. Throughout the resection, the collateral ligaments were protected with retractors. I then placed a trial size 11 femur. It was slightly wide but the narrow fit very nicely, and flush with the distal end of the femur. The drill holes were then made. I then proceeded with the tibial cut. I planned for cruciate-retaining knee. The guide was placed and set for varus, valgus, and for slope. Height set for approximately 2 mm resection from the medial tibial plateau which was the lower side. I was happy with the alignment and the amount of resection. The cutting block was then pinned to the proximal tibia. The alignment jensen was removed and the proximal tibia was resected with a reciprocating saw. Again, this was done with retractors protecting the collateral ligaments as well as the posterior cruciate ligament. I then proceeded to evaluate the flexion and extension gaps. A 10-mm block was then placed. Flexion extension gaps were equal. I then proceeded with resection of posterior osteophytes. He had very minimal posterior osteophytes. This was done using a curved osteotome. This resected the posterior osteophytes and posterior capsular stripping was done off the posterior aspect of the femur at this time. The osteophytes were then removed. I then proceeded with resection of the patella. The thickness of patella was measured using the caliper. The thickness was 25 mm. The thickness of the anticipated patellar dome was taken into account. Resection was then performed and confirmed to be equal in 4 quadrants using a caliper. Approximately 14 mm of bone remained after resection. A 35 x 9 standard patellar trial was then placed. The holes were drilled and the trial was then placed. I then proceeded with sizing tibial plate. Size F tibial plate fit very nicely. We placed the trial femur, the tibial tray, and the patellar button. A 10 mm trial insert was also placed. The components fit very nicely. He had full extension and flexion. The extension and flexion gaps were equal and stable to both varus and valgus stress. The patella tracked appropriately. The tibial tray rotation was then marked with a Bovie. This was externally rotated properly. I then proceeded with tibial preparation. I first drilled the femoral holes and removed the femoral component. The tibial tray was then set for proper external rotation as well as medial lateral placement onto the tibia. It was then pinned into place. I then proceeded with punching the keel. Of note, he did have a previous tibial plateau fracture. His bone quality seemed excellent. However, given that he did have injury to the bone, I did make a decision to add a 30 mm extension to the stem of the tibial plate. I then decided to proceed with cementing of all our components. The knee was thoroughly irrigated with sterile saline solution via pulse lavage. The lateral genicular artery was identified and cauterized. All blood was removed from the bone of the tibia, femur, and patella with pulsed lavage. I then proceeded with cementing. Two packs of antibiotic bone cement were prepared on the back table by microbiological laboratory technician. I then proceeded with cementing of the tibia first. The cement was impacted in the keel as well as deeply seated into the bone. A second coat of cement was then placed. The tibia was then impacted into place. Excess cement was removed with [place]'s and Jokers. I then proceeded with cementing of the femoral component. The femoral component was also cemented using standard technique. Excess cement was removed. A 10 mm trial insert was then placed in the knee. It was brought into full extension with a constant axial load placed until the cement had hardened. The patellar component was then cemented. This held firmly with a compressive device until the cement had dried. When the cement had dried, the knee was taken out of extension. All excess cement was removed from around the prosthesis. I then trialed the knee with a 10-mm insert. Flexion extension gaps were appropriate. Knee was stable. It came into full extension. I decided to go forward with a 10-mm medial congruent cross-linked cruciate- retaining tibial insert. Polyethylene was then placed onto the tibial tray and locked into place. The knee was then reduced. The knee was again further irrigated with sterile saline solution with antibiotic added. The tourniquet was then deflated. Total tourniquet time for the procedure was 70 minutes at 250 mmHg. Final components were Baron Persona size 11 narrow cruciate-retaining femoral component, a size F tibial tray with a 14 mm x 30 mm stem, a 10 mm medial congruent cruciate-retaining polyethylene insert, and a 35 x 9 mm patella. I then proceeded with closure. Again, the knee was thoroughly irrigated. The quadriceps tendon and medial retinaculum were reapproximated with #2 Ethibond suture. The extensor mechanism was then closed with a running #2 Quill suture. Subcutaneous tissues were closed with 2-0 Vicryl interrupted suture. The skin was closed with a running 3-0 Quill suture. Dermabond was applied to the incision. Sterile compressive dressing were then applied. All sponge and needle counts were deemed correct prior to closure. The patient tolerated procedure without apparent complication. He was transferred to recovery room in stable condition. MMODL / IJN: [id number] /
[2024-01-21] MEDS: ROPIVACAINE 1,100 MG, SODIUM CHLORIDE 0.9% 500 ML 330 ML, EMPTY PAIN BALL 1 EACH MISCELLANE PRN (14:46)
[2024-01-21] MEDS: traMADol 50 MG TAB PO SCH (15:17)
[2024-01-21] MEDS: SENNOSIDES-DOCUSATE SODIUM 1 EACH TAB PO SCH (20:35)
[2024-01-21] MEDS: ASPIRIN 81 MG PO SCH (20:35)
[2024-01-21] MEDS: ATORVASTATIN 20 MG TAB PO SCH (20:36)
--- NOTE | 2024-01-21 20:49 | P.ANPRN ---
Procedure Note - Anesthesia - Nerve Block Performed Left Adductor Canal Infusion Time Out Performed: Yes Date of Procedure: 01/21/24 Procedure Start Time: :36 Procedure Stop Time: :43 Location of Patient: PreOp Indication: Acute Post-Operative Pain, Requested by Surgeon Sedation Type: Sedate with meaningful contact maintained Preparation: Sterile Prep, Sterile Dressing Position: Supine Catheter: Indwelling Needle Types: Pajunk Needle Gauge: 21 Ultrasound used to visualize needle placement: Yes Ultrasound used to observe medication spread: Yes Blood Aspirated: No Pain Paresthesia on Injection Noted: No Resistance on Injection: Normal Image Stored and Saved: Yes Events: Uneventful and Well Tolerated (Ropivacaine 0.5% 20 cc cc plus dexamethasone 4 mg)
--- NOTE | 2024-01-21 20:50 | P.ANPRN ---
Procedure Note - Anesthesia - Nerve Block Performed Left iPack Single Time Out Performed: Yes Date of Procedure: 01/21/24 Procedure Start Time: :44 Procedure Stop Time: :46 Location of Patient: PreOp Indication: Acute Post-Operative Pain, Requested by Surgeon Sedation Type: Sedate with meaningful contact maintained Preparation: Sterile Prep Position: Supine Needle Types: Pajunk Needle Gauge: 21 Ultrasound used to visualize needle placement: Yes Ultrasound used to observe medication spread: Yes Blood Aspirated: No Pain Paresthesia on Injection Noted: No Resistance on Injection: Normal Image Stored and Saved: Yes Events: Uneventful and Well Tolerated (Ropivacaine 0.5% 20 cc plus dexamethasone 4 mg)
[2024-01-21] MEDS: LATANOPROST 0.005% OPHTH DROPS 2.5 ML BTL BOTH EYES SCH (21:48)
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
[2024-01-22] MEDS: CYANOCOBALAMIN 500 MCG TAB PO SCH (09:01)
[2024-01-22] MEDS: PANTOPRAZOLE 40 MG TABLET PO SCH (09:01)
[2024-01-22] MEDS: FERROUS SULFATE 325 MG TAB PO SCH (09:01)
[2024-01-22] MEDS: hydroCHLOROthiazide 12.5 MG CAP PO SCH (09:01)
[2024-01-22] MEDS: MELOXICAM 7.5 MG TAB PO SCH (09:01)
[2024-01-22] MEDS: LOSARTAN 50 MG TAB PO SCH (09:01)
--- NOTE | 2024-01-22 09:01 | P.PN ---
Subjective Progress Note Date: 01/22/24 Principal diagnosis: Primary osteoarthritis left knee. Status post total left knee replacement. This is a 78-year-old male who is postop day #1 status post total left knee arthroplasty. He has no new complaints or concerns today. Vital signs are stable. He reports no nausea, vomiting or diarrhea. He reports no fever or chills. Objective - Vital Signs Vital signs: Vital Signs Temp 97.4 F L 01/22/24 07:24 Pulse 81 01/22/24 07:24 Resp 16 01/22/24 07:24 BP 119/75 01/22/24 07:24 Pulse Ox 99 01/22/24 07:24 FiO2 Intake & Output 01/21/24 01/22/24 01/22/24 18:59 06:59 18:59 Intake Total 1601 420 Output Total 100 Balance 1501 420 Weight 124.6 kg Intake: IV 1601 Oral 420 Output: Estimated Blood Loss 100 Other: Voiding Method Urinal # Voids 900 - Exam This is a pleasant 78-year-old male in no acute distress. He is alert and oriented x 3. Exam of the left lower extremity reveals that his postoperative dressing is clean, dry and intact. He has full foot and ankle motion without difficulty or pain. Neurovascular status to the lower extremity is intact. Assessment and Plan (1) Primary localized osteoarthritis of left knee Current Visit: Yes Status: Acute Code(s): M17.12 - UNILATERAL PRIMARY OSTEOARTHRITIS, LEFT KNEE SNOMED Code(s): 901763046994020 (2) Status post total left knee replacement Current Visit: Yes Status: Acute Code(s): Z96.652 - PRESENCE OF LEFT ARTIFICIAL KNEE JOINT SNOMED Code(s): 5096218072453 Plan: The clinical findings are discussed with the patient. We are awaiting evaluation by physical therapy. The patient would like to go to an inpatient rehab facility. I will place an order for occupational therapy evaluation as well and review the case with case management. He may be discharged to inpatient rehab as soon as placement is arranged.
[2024-01-22] MEDS: CHOLECALCIFEROL 25 MCG (1000 IU) TABLET PO SCH (09:02)
--- NOTE | 2024-01-22 09:30 | P.PN ---
Progress Note - Text 01/22/24 619am 78-year-old male status post total knee replacement. Patient is an On-Q pump for postop pain control with a solution running at 8 cc with a VAS of 0. Dressing clean dry and intact. Plan to continue On-Q pump infusion
[2024-01-22 10:33] LABS: Basophils # (A) 0.02 X 10*3/uL (0.00-0.10); Basophils % (A) 0.1 %; Eosinophils # (A) 0 X 10*3/uL (0.04-0.35); Eosinophils % (A) 0 %; HGB 13.1 g/dL (13.0-17.0); Lymphocytes % (A) 9.6 %; MCH 29.3 pg (27.0-32.0); MCHC 32.8 g/dL (32.0-37.0); MCV 89.5 FL (80.0-97.0); Mean Platelet Volume 12.1 FL (9.5-12.2); Monocytes # (A) 0.88 X 10*3/uL (0.20-1.00); Monocytes % (A) 6.5 %; NRBC Per 100 WBC 0 X 10*3/uL (0.00-0.01); Neutrophils % (A) 83.3 %; Platelet Count 137 X 10*3/uL (140-440); RBC 4.47 X 10*6/uL (4.40-5.60); RDW 12.7 % (11.5-14.5); WBC 13.57 X 10*3/uL (4.50-10.00)
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
[2024-01-22] MEDS: traMADol 50 MG TAB PO PRN (21:21)
[2024-01-23 07:58] VITALS: BP 97/64; PULSE 68; RESP 17; TEMP 99
[2024-01-23] MEDS: LOSARTAN 50 MG TAB PO SCH (08:20)
--- NOTE | 2024-01-23 12:17 | P.DS ---
Providers Date of admission: 01/21/2024 Expected date of discharge: 01/23/24 Attending physician: Rafa Reyes Consults: 01/21/24 10:32 Consult Physician Routine Consulting Provider: Cole Sanchez Consult Reason/Comments: Medical management Do you want consulting provider notified?: Yes Primary care physician: Aurelio Lo - Discharge Diagnosis(es) (1) Osteoarthritis of left knee Current Visit: Yes Status: Acute (2) Status post total knee replacement Current Visit: Yes Status: Acute (3) Left knee pain Current Visit: Yes Status: Acute (4) Hearing loss Current Visit: Yes Status: Acute (5) History of prostate cancer Current Visit: Yes Status: Acute (6) Hypertension Current Visit: No Status: Acute Hospital Course: This is a pleasant 78-year-old male who presented with left knee osteoarthritis who failed outpatient conservative therapy. He was admitted for a left total knee arthroplasty. The patient tolerated the procedure well and did well postoperatively. He was originally planning for discharge to rehabilitation facility but has done well postoperatively. Physical therapy documentation states patient is progressing too well to qualify for rehab. He does feel he would be ready for discharge home. He does have a walker. He is ambulating with assistance of a walker. His left knee pain is well-controlled with medica tion. He is eating and voiding without difficulty. Condition on day of discharge stable. Patient will be discharged home. Patient was cleared preoperatively for surgery by Dr. Lo. Patient currently denies any nausea, vomiting, fever, or chills. Patient is eating and voiding freely without difficulty. Dressing is intact over the left knee. Dressing was removed with incision site inspected. Dressing was reapplied with nonstick Telfa, 4 x 4, ABD, and Wai wrap. Patient is encouraged to elevate his left lower extremity and may apply ice for comfort support over the left knee as needed for pain control. He is encouraged to continue utilizing a walker to aid in ambulation. She should avoid excessive activities and excessive ambulation on his left lower extremity. On-Q pain pump has been discontinued by anesthesia. MAPS has been previously been reviewed. "Opiod Start Talking" Form has been signed and placed in the patient's chart. A prescription has been written for tramadol, 50 mg, 2 tabs, every 6 hours, as needed for pain, dispense #28. Patient is also given prescriptions for meloxicam, Senokot-S, and Zofran which he may take as prescribed as needed for control of his symptoms. He should also take aspirin 81 mg, 1 tab, twice daily, for the next 30 days. Following completion of this he may resume his regular prescribed aspirin. Prescriptions are printed and signed that he may take to his regular pharmacy. The hospital pharmacy is closed. Patient's other medical diagnoses include hypertension, hearing loss, and history of prostate cancer. Physical Exam on day of discharge: Status post surgical day number 2 Patient is awake, alert, and oriented 3 Vital signs stable Good chest excursion with deep inspiration and expiration No signs or symptoms of DVT; no calf pain Dressing over the left knee is clean, dry, and intact; no erythema, purulence, or signs of infection Surgical incision site is clean and dry with no active drainage Dorsiflexion, plantar flexion, and extensor hallucis longus positive sustained on the left Neurovascular status left lower extremity intact Procedures: Left total knee arthroplasty Patient Condition at Discharge: Stable Plan - Discharge Summary New Discharge Prescriptions: New Ondansetron Odt [Zofran Odt] 4 mg PO Q8HR PRN #14 tab PRN Reason: Nausea Aspirin [Adult Low Dose Aspirin EC] 81 mg PO BID #1 tab Meloxicam 7.5 mg PO DAILY #30 tab Sennosides-Docusate Sodium [Senokot-S] 1 tab PO BID #60 tablet traMADol HCl [Ultram] 50 mg PO Q6HR PRN #28 tab PRN Reason: Pain No Action Atorvastatin [Lipitor] 20 mg PO HS Cyanocobalamin (Vitamin B-12) [Vitamin B-12] 1,000 mcg PO DAILY Aspirin 81 mg PO DAILY Losartan/Hydrochlorothiazide [Hyzaar 100-12.5 Tablet] 1 tab PO DAILY Pantoprazole Sodium [Protonix] 20 mg PO DAILY Latanoprost [Latanoprost 0.005%] 1 drop BOTH EYES HS Ferrous Sulfate [Feosol] 325 mg PO DAILY Cholecalciferol [Vitamin D3 (25 Mcg = 1000 Iu)] 25 mcg PO DAILY Discharge Medication List Aspirin 81 mg PO DAILY 02/17/23 [History] Atorvastatin [Lipitor] 20 mg PO HS 10/29/23 [History] Latanoprost [Latanoprost 0.005%] 1 drop BOTH EYES HS 10/29/23 [History] Losartan/Hydrochlorothiazide [Hyzaar 100-12.5 Tablet] 1 tab PO DAILY 10/29/23 [History] Pantoprazole Sodium [Protonix] 20 mg PO DAILY 10/29/23 [History] Cholecalciferol [Vitamin D3 (25 Mcg = 1000 Iu)] 25 mcg PO DAILY 01/18/24 [History] Cyanocobalamin (Vitamin B-12) [Vitamin B-12] 1,000 mcg PO DAILY 01/18/24 [History] Ferrous Sulfate [Feosol] 325 mg PO DAILY 01/18/24 [History] Aspirin [Adult Low Dose Aspirin EC] 81 mg PO BID #1 tab 01/21/24 [Rx] Meloxicam 7.5 mg PO DAILY #30 tab 01/21/24 [Rx] Ondansetron Odt [Zofran Odt] 4 mg PO Q8HR PRN #14 tab 01/21/24 [Rx] Sennosides-Docusate Sodium [Senokot-S] 1 tab PO BID #60 tablet 01/21/24 [Rx] traMADol HCl [Ultram] 50 mg PO Q6HR PRN #28 tab 01/21/24 [Rx] Follow up Appointment(s)/Referral(s): [facility] [NON-STAFF] - As Needed (walker) [facility] [NON-STAFF] - As Needed Rafa Reyes MD [STAFF PHYSICIAN] - 02/02/24 1:00 pm Activity/Diet/Wound Care/Special Instructions: 1. May bear wt as tolerated w walker. 2. May change dressing 48h post op. 3. May shower 48h post op. 4. Encourage elevation of left lower extremity. 5. May apply ice over the left knee for comfort support as needed. 6. Take medications as prescribed. Discharge Disposition: HOME SELF-CARE
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
== END 2024-01-23 14:09 | disposition home or self-care (01) ==
LOC: OR 07:41 → 4SSUR 12:31 → OR 01-23 14:09
PROVIDERS: ATTEND Orthopaedic Surgery Sports Medicine
DX: M17.12 Unilateral primary osteoarthritis, left knee (principal); E78.5 Hyperlipidemia, unspecified; G89.18 Other acute postprocedural pain; I10 Essential (primary) hypertension; K21.9 Gastro-esophageal reflux disease without esophagitis; D72.829 Elevated white blood cell count, unspecified; Z79.1 Long term (current) use of non-steroidal anti-inflammatories (NSAID); Z79.82 Long term (current) use of aspirin; Z79.899 Other long term (current) drug therapy; Z85.46 Personal history of malignant neoplasm of prostate; Z88.5 Allergy status to narcotic agent
CPT/HCPCS: 97162; 97166; 64999; 64448; 85025; 73560; 27447; C1776; C1713; C1751; J2250; J1100; J0690 ×3; J2405; J2795

== ENCOUNTER → 2024-07-14 | Outpatient (CLI) | payer MEDICARE | END | disposition home or self-care (01) | LOC: LABWHC1 10:31 | PROVIDERS: ATTEND Radiology Radiation Oncology | DX: Z08 Encounter for follow-up examination after completed treatment for malignant neoplasm (principal); Z85.46 Personal history of malignant neoplasm of prostate; Z92.3 Personal history of irradiation; Z90.79 Acquired absence of other genital organ(s); C61 Malignant neoplasm of prostate | CPT/HCPCS: 36415; 84153 ==